=== PATIENT | male | born 1970 ===

== ENCOUNTER 2018-04-28 16:45 | Inpatient (IN) | payer BC ==
[2018-04-28] MEDS ORDERED: Sodium Chloride 0.9% 1,000 ML IV STA ×2 (17:00→18:31)
--- NOTE | 2018-04-28 17:10 | ED PDOC ---
HPI: General Adult Time Seen by Provider: 04/28/18 16:59 Chief Complaint (Nursing): Abnormal Labs Chief Complaint (Provider): High blood sugar History Per: Patient History/Exam Limitations: no limitations Onset/Duration Of Symptoms: Days (yesterday) Additional Complaint(s): Pt. was seen by Dr. Cabrera yesterday for routine check up and fungus on his penis. Pt. got blood work done yesterday for this and told to go to the ER today as his sugar was high. Pt. has increased urination but no dysuria. No chest pain, dyspnea, weakness, numbness, tingles, abd pain, nausea, vomit. Past Medical History Reviewed: Nursing Documentation, Vital Signs Vital Signs: Last Vital Signs Temp 98.4 F 04/28/18 16:48 Pulse 114 H 04/28/18 16:48 Resp 18 04/28/18 16:48 BP 140/92 H 04/28/18 16:48 Pulse Ox 99 04/28/18 16:48 - Medical History PMH: HIV (on HAART) Denies: Diabetes, Hepatitis, HTN, Seizures, Sexually Transmitted Disease - Surgical History Surgical History: Appendectomy - Family History Family History: States: Unknown Family Hx - Living Arrangements Living Arrangements: With Family - Home Medications Home Medications: Ambulatory Orders Medication Instructions Recorded Emtricitabine/Tenofovir Diso 1 tab PO DAILY 04/28/18 [Truvada 200 MG-300 MG] Fluconazole 150 mg PO ONCE 04/28/18 Multivitamin/Iron/Folic Acid 1 tab PO DAILY 04/28/18 [Centrum Complete Multivit Tab] Nystatin [Nystatin Oral Susp] 4 ml PO QID 04/28/18 Raltegravir Potassium [Isentress] 400 mg PO Q12 04/28/18 metroNIDAZOLE [Flagyl] 2,000 mg PO ONCE 04/28/18 - Allergies Allergies/Adverse Reactions: Allergies Allergy/AdvReac Type Severity Reaction Status Date / Time No Known Allergies Allergy Verified 02/16/15 21:41 Review of Systems ROS Statement: Except As Marked, All Systems Reviewed And Found Negative Genitourinary Male: Positive for: Frequency, Rash Physical Exam - Reviewed Nursing Documentation Reviewed: Yes Vital Signs Reviewed: Yes - Physical Exam Appears: Positive for: Uncomfortable Head Exam: Positive for: ATRAUMATIC, NORMAL INSPECTION, NORMOCEPHALIC Skin: Positive for: Normal Color, Warm, DRY Eye Exam: Positive for: EOMI, Normal appearance, PERRL ENT: Positive for: Other (thrush on tongue). Negative for: Nasal Congestion, Pharyngeal Erythema Neck: Positive for: Normal, Painless ROM Cardiovascular/Chest: Positive for: Regular Rate, Rhythm Respiratory: Positive for: CNT, Normal Breath Sounds Gastrointestinal/Abdominal: Positive for: Normal Exam, Soft. Negative for: Tenderness Male Genital Exam: Positive for: other (thrus at distal tip with mild erythema. nontender.). Negative for: scrotum tenderness (R), scrotum tenderness (L) Back: Positive for: Normal Inspection. Negative for: L CVA Tenderness, R CVA Tenderness Extremity: Positive for: Normal ROM. Negative for: Tenderness Neurologic/Psych: Positive for: Alert, Oriented - Laboratory Results Result Diagrams: 04/28/18 17:35 04/28/18 17:35 Interpretation Of Abn Labs: 665 glucose - ECG ECG: Positive for: Interpreted By Me, Viewed By Me ECG Rhythm: Positive for: Normal QRS, Normal ST Segment, Sinus Rhythm O2 Sat by Pulse Oximetry: 99 Pulse Ox Interpretation: Normal - Radiology X-Ray: Interpreted by Me, Viewed By Me X-Ray Interpretation: No Acute Disease - Progress ED Course And Treament: 175: Stable. Dr. Christina spoken to. Alicia hospitalist to admit. 1831: Spoke with Dr. Ivey. Will admit. Stable. AAOx3. - Critical Care Total Time (In Min): 30 Documented Critical Care: Time excludes all time spent performint seperately billable procedures Disposition - Clinical Impression Clinical Impression: Hyperglycemia, Balanitis, Thrush - Patient ED Disposition Is Patient to be Admitted: Yes Counseled Patient/Family Regarding: Studies Performed, Diagnosis - Disposition Disposition Time: 18:33 Condition: FAIR - Pt Status Changed To: Hospital Disposition Of: Inpatient - Admit Certification Admit to Inpatient:: After my assessment, the patient will require hospitalization for at least two midnights. This is because of the severity of symptoms shown, intensity of services needed, and/or the medical risk in this patient being treated as an outpatient. - POA Present On Arrival: Poor Glycemic Control
[2018-04-28 17:50] LABS: BASO # 0.1 K/uL (0.0-0.2); BASO % 0.8 % (0.0-2.0); EOS % 0.6 % (0.0-4.0); HEMOGLOBIN 14.3 g/dL (12.0-18.0); LYMPH # 2.2 K/uL (1.0-4.3); LYMPH % 26.8 % (20.0-40.0); MEAN CELL VOLUME 85.7 fl (80.0-94.0); MEAN CORPUSCULAR HEMOGLOBIN 29.8 pg (27.0-31.0); MEAN CORPUSCULAR HGB CONC 34.7 g/dL (33.0-37.0); MEAN PLATELET VOLUME 10.3 fl (7.2-11.7); MONO # 0.6 K/uL (0.0-0.8); MONO % 7.3 % (0.0-10.0); NEUT # 5.2 K/uL (1.8-7.0); NEUT % 64.5 % (50.0-75.0); NRBC % 0.2 % (0.0-0.0); RBC 4.8 Mil/uL (4.40-5.90); RED CELL DISTRIBUTION WIDTH 13.5 % (11.5-14.5); WHITE BLOOD COUNT 8.1 K/uL (4.8-10.8)
[2018-04-28 17:50] LABS: VENOUS BLOOD GAS BASE EXCESS -0.3 mmol/L (0.0-2.0); VENOUS BLOOD GAS PCO2 38 mmHg (40-60); VENOUS BLOOD GAS PO2 56 mm/Hg (30-55); VENOUS BLOOD PH 7.41 (7.32-7.43)
[2018-04-28 18:09] LABS: SQUAMOUS EPITHIAL 2 /hpf (0-5); URINE BILIRUBIN NEGATIVE (NEGATIVE); URINE BLOOD SMALL (NEGATIVE); URINE CLARITY SLIGHTY-CLOUDY (Clear); URINE COLOR STRAW (YELLOW); URINE GLUCOSE (UA) >=500 mg/dL (Normal); URINE LEUKOCYTE ESTERASE LARGE Leu/uL (Negative); URINE PROTEIN NEGATIVE (NEGATIVE); URINE UROBILINOGEN 0.2-1.0 mg/dL (0.2-1.0)
[2018-04-28 18:27] LABS: ALT/SGPT 190 U/L (21-72); AST/SGOT 116 U/L (17-59); BLOOD UREA NITROGEN 16 mg/dl (9-20); CALCIUM 9.2 mg/dL (8.4-10.2); GFR NON-AFRICAN AMERICAN > 60
[2018-04-28] MEDS ORDERED: Insulin Regular 100 units/ml IV STA (18:30)
[2018-04-28] MEDS ORDERED: Insulin Regular 100 units/ml ONE (18:34)
[2018-04-28] MEDS ORDERED: Glucagon Recombinant 1 mg Inj IM PRN (19:24)
[2018-04-28] MEDS ORDERED: Dextrose 50% SYRINGE Inj (50 ml) IV PRN (19:24)
[2018-04-28] MEDS ORDERED: Sodium Chloride 0.9% 1,000 ML IV SCH (19:30)
--- NOTE | 2018-04-28 19:36 | CP.PCM.HP ---
Addendum entered and electronically signed by Tony Henao MD 04/28/18 20:08: additional problem: hyponatremia on CMP, 128, likely pseudohyponatremia due to hyperglycemia, corrected Na 142 lipid panel pending f/u am labs Original Note: <Tony Henao - Last Filed: 04/28/18 19:37> History of Present Illness - History of Present Illness History of Present Illness: 47 y/o male with history of HIV on HAART therapy presented to ED for evaluation of hyperglycemia. Pt was undergoing lab evaluation by his PMD when he was notified that his blood sugar on recent labs was very high and he should go to the ER for evaluation. Pt reports for the last three weeks hes been very thirsty, and has been losing weight as well. Reports he was 225lbs prior, and now is 158lbs. He also has been feeling weaker than usual with associated dizziness. Reports being able to tolerate PO water intake w/o issue. Has been adherent with HAART medical regiment. No other complaints. Denies fever/chills/cough/SOB/CP/Palpiations/urinary symptoms, diarrhea. ROS: as per HPI, all other systems reviewed, found to be negative PMD: Armando PMHx: HIV on HAART Meds: Isentress/truvada ALL: NKDA Social: denies ETOH/Tobacco/drug abuse FamilyHx: DM in maternal grandmother ED course: Vitals: T 98.4, HR 114, BP 140/92, RR 18, POX 99% RA CBC: 8.1>14.3/41.1<147 CMP: Na 128, Cl 95, BUN/Cr: 16/0.7, Anion 18, BS 665, AST/ALT: 190/154 VBG: Lactate 1.8 Urine: trace ketones, elevated specific gravity, >500 glucose, negative nitrates, large LE, 12 WBC hpf EKG CXR Present on Admission - Present on Admission Any Indicators Present on Admission: No History of DVT/PE: No History of Uncontrolled Diabetes: No Urinary Catheter: No Decubitus Ulcer Present: No Review of Systems - Review of Systems Review of Systems: as per HPI Past Patient History - Past Medical History & Family History Past Family History: Reviewed and not pertinent - Past Social History Smoking Status: Never Smoked Alcohol: None Drugs: Denies Home Situation {Lives}: With Family - CARDIAC Hx Hypertension: No - PULMONARY Hx Tuberculosis: No - NEUROLOGICAL Hx Seizures: No - HEMATOLOGICAL/ONCOLOGICAL Hx Human Immunodeficiency Virus (HIV): Yes (on HAART) - GENITOURINARY/GYNECOLOGICAL Hx Sexually Transmitted Disorders: No - PSYCHIATRIC Hx Substance Use: No - SURGICAL HISTORY Hx Appendectomy: Yes - ANESTHESIA Hx Anesthesia: Yes Hx Anesthesia Reactions: No Meds Allergies/Adverse Reactions: Allergies Allergy/AdvReac Type Severity Reaction Status Date / Time No Known Allergies Allergy Verified 02/16/15 21:41 Physical Exam - Constitutional Appears: Non-toxic, No Acute Distress - Head Exam Head Exam: ATRAUMATIC, NORMOCEPHALIC - Eye Exam Eye Exam: EOMI. absent: Scleral icterus Pupil Exam: PERRL - ENT Exam ENT Exam: Mucous Membranes Dry. absent: Mucous Membranes Moist - Respiratory Exam Respiratory Exam: Clear to Auscultation Bilateral, NORMAL BREATHING PATTERN. absent: Rales, Rhonchi, Wheezes - Cardiovascular Exam Cardiovascular Exam: REGULAR RHYTHM, RRR, +S1, +S2. absent: JVD, Rubs - GI/Abdominal Exam GI & Abdominal Exam: Normal Bowel Sounds, Soft. absent: Tenderness - Extremities Exam Extremities exam: Negative for: pedal edema - Neurological Exam Neurological exam: Alert, CN II-XII Intact, Oriented x3 - Skin Additional comments: generalized tattoos Results - Vital Signs Recent Vital Signs: Last Vital Signs Temp 98.4 F 04/28/18 16:48 Pulse 114 H 04/28/18 16:48 Resp 18 04/28/18 16:48 BP 140/92 H 04/28/18 16:48 Pulse Ox 99 04/28/18 18:33 - Labs Result Diagrams: 04/28/18 17:35 04/28/18 17:35 Labs: Laboratory Results - last 24 hr 04/28/18 04/28/18 04/28/18 16:59 17:21 17:35 WBC 8.1 RBC 4.80 Hgb 14.3 Hct 41.1 MCV 85.7 D MCH 29.8 MCHC 34.7 RDW 13.5 Plt Count 147 MPV 10.3 Neut % (Auto) 64.5 Lymph % (Auto) 26.8 [place] % (Auto) 7.3 Eos % (Auto) 0.6 Baso % (Auto) 0.8 Neut # (Auto) 5.2 Lymph # (Auto) 2.2 [place] # (Auto) 0.6 Eos # (Auto) 0.0 Baso # (Auto) 0.1 pO2 VBG pH VBG pCO2 VBG HCO3 VBG Total CO2 VBG O2 Sat (Calc) VBG Base Excess VBG Potassium Glucose Lactate FiO2 Crit Value Called To Crit Value Called By Crit Value Read Back Blood Gas Notified Time Sodium Potassium Chloride Carbon Dioxide Anion Gap BUN Creatinine Est GFR ( Amer) Est GFR (Non-Af Amer) POC Glucose (mg/dL) > 500 H* Random Glucose Calcium Total Bilirubin AST ALT Alkaline Phosphatase Troponin I Total Protein Albumin Globulin Albumin/Globulin Ratio Venous Blood Potassium Urine Color Straw Urine Clarity Slighty-cloudy Urine pH 6.0 Ur Specific [place] 1.031 H Urine Protein Negative Urine Glucose (UA) >=500 Urine Ketones Trace Urine Blood Small Urine Nitrate Negative Urine Bilirubin Negative Urine Urobilinogen 0.2-1.0 Ur Leukocyte Esterase Large Urine RBC (Auto) 7 H Urine Microscopic WBC 12 H Ur Squamous Epith Cells 2 04/28/18 04/28/18 17:35 17:38 WBC RBC Hgb Hct MCV MCH MCHC RDW Plt Count MPV Neut % (Auto) Lymph % (Auto) [place] % (Auto) Eos % (Auto) Baso % (Auto) Neut # (Auto) Lymph # (Auto) [place] # (Auto) Eos # (Auto) Baso # (Auto) pO2 56 H VBG pH 7.41 VBG pCO2 38 L VBG HCO3 24.5 VBG Total CO2 25.3 VBG O2 Sat (Calc) 92.8 H VBG Base Excess -0.3 L VBG Potassium 4.7 Glucose 713 H* Lactate 1.8 FiO2 21.0 Crit Value Called To bernie Garcia md Crit Value Called By Carrie boone Crit Value Read Back Y Blood Gas Notified Time 1750 Sodium 128 L 128.0 L Potassium 4.9 Chloride 95 L 92.0 L Carbon Dioxide 20 L Anion Gap 18 BUN 16 Creatinine 0.7 L Est GFR ( Amer) > 60 Est GFR (Non-Af Amer) > 60 POC Glucose (mg/dL) Random Glucose 665 H* D Calcium 9.2 Total Bilirubin 0.9 AST 116 H ALT 190 H Alkaline Phosphatase 154 H Troponin I < 0.0120 Total Protein 7.9 Albumin 4.0 Globulin 3.9 Albumin/Globulin Ratio 1.0 Venous Blood Potassium 4.7 Urine Color Urine Clarity Urine pH Ur Specific [place] Urine Protein Urine Glucose (UA) Urine Ketones Urine Blood Urine Nitrate Urine Bilirubin Urine Urobilinogen Ur Leukocyte Esterase Urine RBC (Auto) Urine Microscopic WBC Ur Squamous Epith Cells Assessment & Plan - Assessment and Plan (Free Text) Assessment: 47 y/o male with a PMHx remarkable for HIV on HAART therapy admitted for symptomatic hyperglycemia. 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 -hold HAART meds due to hyperglycemia/transaminasemia -f/u with ID 5) Diet -NPO 6) Prophylaxis -Lovenox 40mg SC QD 7) Code Status -full code <Isiah Ivey D - Last Filed: 04/28/18 23:18> Results - Vital Signs Recent Vital Signs: Last Vital Signs Temp 98.5 F 04/28/18 21:05 Pulse 80 04/28/18 21:05 Resp 18 04/28/18 21:05 BP 124/77 04/28/18 21:05 Pulse Ox 95 04/28/18 21:05 - Labs Result Diagrams: 04/28/18 17:35 04/28/18 17:35 Labs: Laboratory Results - last 24 hr 04/28/18 04/28/18 04/28/18 16:59 17:21 17:35 WBC 8.1 RBC 4.80 Hgb 14.3 Hct 41.1 MCV 85.7 D MCH 29.8 MCHC 34.7 RDW 13.5 Plt Count 147 MPV 10.3 Neut % (Auto) 64.5 Lymph % (Auto) 26.8 [place] % (Auto) 7.3 Eos % (Auto) 0.6 Baso % (Auto) 0.8 Neut # (Auto) 5.2 Lymph # (Auto) 2.2 [place] # (Auto) 0.6 Eos # (Auto) 0.0 Baso # (Auto) 0.1 pO2 VBG pH VBG pCO2 VBG HCO3 VBG Total CO2 VBG O2 Sat (Calc) VBG Base Excess VBG Potassium Glucose Lactate FiO2 Crit Value Called To Crit Value Called By Crit Value Read Back Blood Gas Notified Time Sodium Potassium Chloride Carbon Dioxide Anion Gap BUN Creatinine Est GFR ( Amer) Est GFR (Non-Af Amer) POC Glucose (mg/dL) > 500 H* Random Glucose Calcium Total Bilirubin AST ALT Alkaline Phosphatase Troponin I Total Protein Albumin Globulin Albumin/Globulin Ratio Triglycerides Cholesterol LDL Cholesterol Direct HDL Cholesterol Venous Blood Potassium Urine Color Straw Urine Clarity Slighty-cloudy Urine pH 6.0 Ur Specific [place] 1.031 H Urine Protein Negative Urine Glucose (UA) >=500 Urine Ketones Trace Urine Blood Small Urine Nitrate Negative Urine Bilirubin Negative Urine Urobilinogen 0.2-1.0 Ur Leukocyte Esterase Large Urine RBC (Auto) 7 H Urine Microscopic WBC 12 H Ur Squamous Epith Cells 2 04/28/18 04/28/18 04/28/18 17:35 17:38 20:47 WBC RBC Hgb Hct MCV MCH MCHC RDW Plt Count MPV Neut % (Auto) Lymph % (Auto) [place] % (Auto) Eos % (Auto) Baso % (Auto) Neut # (Auto) Lymph # (Auto) [place] # (Auto) Eos # (Auto) Baso # (Auto) pO2 56 H VBG pH 7.41 VBG pCO2 38 L VBG HCO3 24.5 VBG Total CO2 25.3 VBG O2 Sat (Calc) 92.8 H VBG Base Excess -0.3 L VBG Potassium 4.7 Glucose 713 H* Lactate 1.8 FiO2 21.0 Crit Value Called To bernie Garcia md Crit Value Called By Carrie boone Crit Value Read Back Y Blood Gas Notified Time 1750 Sodium 128 L 128.0 L Potassium 4.9 Chloride 95 L 92.0 L Carbon Dioxide 20 L Anion Gap 18 BUN 16 Creatinine 0.7 L Est GFR ( Amer) > 60 Est GFR (Non-Af Amer) > 60 POC Glucose (mg/dL) Random Glucose 665 H* D Calcium 9.2 Total Bilirubin 0.9 AST 116 H ALT 190 H Alkaline Phosphatase 154 H Troponin I < 0.0120 Total Protein 7.9 Albumin 4.0 Globulin 3.9 Albumin/Globulin Ratio 1.0 Triglycerides 280 H Cholesterol 151 LDL Cholesterol Direct 93 HDL Cholesterol 26 L Venous Blood Potassium 4.7 Urine Color Urine Clarity Urine pH Ur Specific [place] Urine Protein Urine Glucose (UA) Urine Ketones Urine Blood Urine Nitrate Urine Bilirubin Urine Urobilinogen Ur Leukocyte Esterase Urine RBC (Auto) Urine Microscopic WBC Ur Squamous Epith Cells Attending/Attestation - Attestation I have personally seen and examined this patient.: Yes I have fully participated in the care of the patient.: Yes I have reviewed all pertinent clinical information: Yes
[2018-04-28] MEDS: Sodium Chloride 0.9% 1,000 ML IV SCH (20:00)
[2018-04-28] MEDS: Insulin Lispro (humaLOG) 100 Units/ml Inj SC SCH ×2 (20:00→23:54)
[2018-04-28 20:56] LABS: HDL CHOLESTEROL 26 MG/DL (30-70)
[2018-04-28 21:07] LABS: LDL CHOLESTEROL 93 mg/dL (0-129)
[2018-04-28] MEDS ORDERED: Insulin Lispro (humaLOG) 100 Units/ml Inj SC SCH (22:00)
[2018-04-29] MEDS: Sodium Chloride 0.9% 1,000 ML IV SCH ×4 (01:43→21:52)
[2018-04-29] MEDS: Insulin Lispro (humaLOG) 100 Units/ml Inj SC SCH ×5 (03:39→21:54)
[2018-04-29 06:09] LABS: HEMOGLOBIN 13.1 g/dL (12.0-18.0); MEAN CELL VOLUME 84.7 fl (80.0-94.0); MEAN CORPUSCULAR HEMOGLOBIN 28.5 pg (27.0-31.0); MEAN CORPUSCULAR HGB CONC 33.7 g/dL (33.0-37.0); RBC 4.59 Mil/uL (4.40-5.90); RED CELL DISTRIBUTION WIDTH 13.6 % (11.5-14.5); WHITE BLOOD COUNT 6.2 K/uL (4.8-10.8)
[2018-04-29 06:32] LABS: BLOOD UREA NITROGEN 12 mg/dl (9-20); CALCIUM 8.5 mg/dL (8.4-10.2); GFR NON-AFRICAN AMERICAN > 60
[2018-04-29] MEDS: Enoxaparin 40 mg Syringe SC SCH (08:38)
[2018-04-29] MEDS ORDERED: Influenza Vaccine (5 YR UP)/PF 60 MCG/0.5 ML SYR IM ONE (09:00)
--- NOTE | 2018-04-29 10:18 | CP.PCM.CON ---
History of Present Illness - History of Present Illness History of Present Illness: Infectious Disease consultation Note- Consult requested by hospitalist . HPI- Natalytn well known to me as he sees me for his HIV care as outpatient. Patient is a 47 year old male with PMH of HIV ( well controlled on HAART( who came to see me in office 2 days ago for c/o whitish thick azael/discharge that he had noticed on his penile under foreskin region for past week with very painful to go to urinate becuase of this. he denied any fever or chills . He denied any cough or sob, however , he sttaes that for past few months he had been having intermittent nausea and abdominal discomfort, no diarrhea. I gave rx for fluzonazole and flagyl because bassed on exam in offce he ahd candidal balanitis and I also sent him for labs including cbc, cmp, Cd4 and Vl . next am notified by lab that pt's glucose was 600, ast/alt/ alp all elevated, Na-129. I immediately called the patient and advised him to go to ER [facility]. Pt. went to Ed and is admitted for new onset diabetes, hyperglycemia and trasnaminitis and he was also found to have LE in UA. He is admitted under the hospitalist service for medicine adn diabetes management. I'm asked to evaluate him for his HIV, + UA and balanitis. Pt. has been started on insulin and IV hydration here so far and state he feels better compared to yesterday. he states he nevr picked up the fluconazole and flagyl since he had not yoly and came to ED immediately as per my advice. Upon further questioning today he admits that he drinks 5 cups of [employer] coffee per day adn he drinks soda everyday . he denies any ETOH use but does states that he usses Marijuana daily and he also state he takes tylenol PM every night to help him sleep. Review of Systems - Review of Systems Review of Systems: ROS- Denies any fever or chills, denies any cough, denies any sob, denies any ROBLES, denies any chest pain, denies any current abd. pain, denies any diarrhea, states he still ahs some pain with urination but less than before. he still has the whitish discharge under his penile foreskin but denies any discharge from the meatus. Past Patient History - Past Medical History & Family History Past Medical History?: Yes - Past Social History Smoking Status: Light Smoker < 10 Cigarettes Daily Alcohol: Occasional Drugs: Cannabis Home Situation {Lives}: With Family - CARDIAC Hx Cardiac Disorders: No - PULMONARY Hx Respiratory Disorders: No Hx Tuberculosis: No - NEUROLOGICAL Hx Neurological Disorder: No Hx Seizures: No - HEENT Hx HEENT Problems: No - RENAL Hx Chronic Kidney Disease: No - HEMATOLOGICAL/ONCOLOGICAL Hx Blood Disorders: Yes Hx Human Immunodeficiency Virus (HIV): Yes - INTEGUMENTARY Hx Dermatological Problems: No - MUSCULOSKELETAL/RHEUMATOLOGICAL Hx Musculoskeletal Disorders: No Hx Falls: No - GASTROINTESTINAL Hx Gastrointestinal Disorders: No - GENITOURINARY/GYNECOLOGICAL Hx Genitourinary Disorders: No Hx Sexually Transmitted Disorders: No - PSYCHIATRIC Hx Psychophysiologic Disorder: No Hx Substance Use: No - SURGICAL HISTORY Hx Surgeries: Yes Hx Appendectomy: Yes - ANESTHESIA Hx Anesthesia: Yes Hx Anesthesia Reactions: No Meds Allergies/Adverse Reactions: Allergies Allergy/AdvReac Type Severity Reaction Status Date / Time No Known Allergies Allergy Verified 02/16/15 21:41 - Medications Medications: Current Medications Dextrose (Dextrose 50% Inj) 0 ml IV STAT PRN; Protocol PRN Reason: Hypoglycemia Protocol Dextrose (Glutose 15) 0 gm PO ONCE PRN; Protocol PRN Reason: Hypoglycemia Protocol Enoxaparin Sodium (Lovenox) 40 mg SC DAILY MEDHAT; Protocol Last Admin: 04/29/18 08:38 Dose: 40 mg Glucagon (Glucagen Diagnostic Kit) 0 mg IM STAT PRN; Protocol PRN Reason: Hypoglycemia Protocol Sodium Chloride (Sodium Chloride 0.9%) 1,000 mls @ 200 mls/hr IV .Q5H MEDHAT Stop: 04/30/18 06:42 Last Admin: 04/29/18 07:08 Dose: 200 mls/hr Insulin Human Lispro (Humalog) 0 units SC Q4H MEDHAT; Protocol Last Admin: 04/29/18 08:38 Dose: 2 units Metformin HCl (Glucophage) 500 mg PO BID MEDHAT Last Admin: 04/29/18 08:37 Dose: 500 mg Nitrofurantoin Macrocrystals (Macrobid) 100 mg PO Q12 MEDHAT; Protocol Last Admin: 04/29/18 08:37 Dose: 100 mg Ondansetron HCl (Zofran Inj) 4 mg IVP Q6 PRN PRN Reason: Nausea/Vomiting Physical Exam - Constitutional Appears: Non-toxic, No Acute Distress - Head Exam Head Exam: ATRAUMATIC - Eye Exam Eye Exam: EOMI, PERRL - ENT Exam Additional comments: dry oral mucosa Minimal oral thrush ( new) - Neck Exam Neck exam: Positive for: Full Rom - Respiratory Exam Respiratory Exam: Clear to Auscultation Bilateral, NORMAL BREATHING PATTERN - Cardiovascular Exam Cardiovascular Exam: RRR, +S1, +S2 - GI/Abdominal Exam GI & Abdominal Exam: Normal Bowel Sounds, Soft Additional comments: Nt, ND No CVA tenderness B/L - Exam Additional comments: candidal looking balanitis ( nurse present in room) - Extremities Exam Extremities exam: Positive for: normal inspection - Neurological Exam Neurological exam: Alert, CN II-XII Intact, Oriented x3 Results - Vital Signs Recent Vital Signs: Last Vital Signs Temp 98.4 F 04/29/18 07:41 Pulse 94 H 04/29/18 07:41 Resp 20 04/29/18 07:41 BP 109/70 04/29/18 07:41 Pulse Ox 98 04/29/18 07:41 - Labs Result Diagrams: 04/29/18 05:25 04/29/18 05:25 Labs: Laboratory Results - last 24 hr 04/28/18 04/28/18 04/28/18 16:59 17:21 17:35 WBC 8.1 RBC 4.80 Hgb 14.3 Hct 41.1 MCV 85.7 D MCH 29.8 MCHC 34.7 RDW 13.5 Plt Count 147 MPV 10.3 Neut % (Auto) 64.5 Lymph % (Auto) 26.8 Atkinson % (Auto) 7.3 Eos % (Auto) 0.6 Baso % (Auto) 0.8 Neut # (Auto) 5.2 Lymph # (Auto) 2.2 Atkinson # (Auto) 0.6 Eos # (Auto) 0.0 Baso # (Auto) 0.1 pO2 VBG pH VBG pCO2 VBG HCO3 VBG Total CO2 VBG O2 Sat (Calc) VBG Base Excess VBG Potassium Glucose Lactate FiO2 Crit Value Called To Crit Value Called By Crit Value Read Back Blood Gas Notified Time Sodium Potassium Chloride Carbon Dioxide Anion Gap BUN Creatinine Est GFR ( Amer) Est GFR (Non-Af Amer) POC Glucose (mg/dL) > 500 H* Random Glucose Serum Osmolality Calcium Total Bilirubin AST ALT Alkaline Phosphatase Troponin I Total Protein Albumin Globulin Albumin/Globulin Ratio Triglycerides Cholesterol LDL Cholesterol Direct HDL Cholesterol Venous Blood Potassium Urine Color Straw Urine Clarity Slighty-cloudy Urine pH 6.0 Ur Specific Hughes 1.031 H Urine Protein Negative Urine Glucose (UA) >=500 Urine Ketones Trace Urine Blood Small Urine Nitrate Negative Urine Bilirubin Negative Urine Urobilinogen 0.2-1.0 Ur Leukocyte Esterase Large Urine RBC (Auto) 7 H Urine Microscopic WBC 12 H Ur Squamous Epith Cells 2 04/28/18 04/28/18 04/28/18 17:35 17:38 20:47 WBC RBC Hgb Hct MCV MCH MCHC RDW Plt Count MPV Neut % (Auto) Lymph % (Auto) Atkinson % (Auto) Eos % (Auto) Baso % (Auto) Neut # (Auto) Lymph # (Auto) Atkinson # (Auto) Eos # (Auto) Baso # (Auto) pO2 56 H VBG pH 7.41 VBG pCO2 38 L VBG HCO3 24.5 VBG Total CO2 25.3 VBG O2 Sat (Calc) 92.8 H VBG Base Excess -0.3 L VBG Potassium 4.7 Glucose 713 H* Lactate 1.8 FiO2 21.0 Crit Value Called To bernie Garcia md Crit Value Called By Carrie boone Crit Value Read Back Y Blood Gas Notified Time 1750 Sodium 128 L 128.0 L Potassium 4.9 Chloride 95 L 92.0 L Carbon Dioxide 20 L Anion Gap 18 BUN 16 Creatinine 0.7 L Est GFR ( Amer) > 60 Est GFR (Non-Af Amer) > 60 POC Glucose (mg/dL) Random Glucose 665 H* D Serum Osmolality Calcium 9.2 Total Bilirubin 0.9 AST 116 H ALT 190 H Alkaline Phosphatase 154 H Troponin I < 0.0120 Total Protein 7.9 Albumin 4.0 Globulin 3.9 Albumin/Globulin Ratio 1.0 Triglycerides 280 H Cholesterol 151 LDL Cholesterol Direct 93 HDL Cholesterol 26 L Venous Blood Potassium 4.7 Urine Color Urine Clarity Urine pH Ur Specific Hughes Urine Protein Urine Glucose (UA) Urine Ketones Urine Blood Urine Nitrate Urine Bilirubin Urine Urobilinogen Ur Leukocyte Esterase Urine RBC (Auto) Urine Microscopic WBC Ur Squamous Epith Cells 04/29/18 04/29/1804/29/18 05:25 05:25 06:30 WBC 6.2 RBC 4.59 Hgb 13.1 Hct 38.9 MCV 84.7 MCH 28.5 MCHC 33.7 RDW 13.6 Plt Count 129 L MPV Neut % (Auto) Lymph % (Auto) Atkinson % (Auto) Eos % (Auto) Baso % (Auto) Neut # (Auto) Lymph # (Auto) Atkinson # (Auto) Eos # (Auto) Baso # (Auto) pO2 VBG pH VBG pCO2 VBG HCO3 VBG Total CO2 VBG O2 Sat (Calc) VBG Base Excess VBG Potassium Glucose Lactate FiO2 Crit Value Called To Crit Value Called By Crit Value Read Back Blood Gas Notified Time Sodium 137 Potassium 4.0 Chloride 105 Carbon Dioxide 28 Anion Gap 8 L BUN 12 Creatinine 0.7 L Est GFR ( Amer) > 60 Est GFR (Non-Af Amer) > 60 POC Glucose (mg/dL) Random Glucose 300 H Serum Osmolality 298 Calcium 8.5 Total Bilirubin AST ALT Alkaline Phosphatase Troponin I Total Protein Albumin Globulin Albumin/Globulin Ratio Triglycerides Cholesterol LDL Cholesterol Direct HDL Cholesterol Venous Blood Potassium Urine Color Urine Clarity Urine pH Ur Specific Hughes Urine Protein Urine Glucose (UA) Urine Ketones Urine Blood Urine Nitrate Urine Bilirubin Urine Urobilinogen Ur Leukocyte Esterase Urine RBC (Auto) Urine Microscopic WBC Ur Squamous Epith Cells Laboratory Results - last 72 hr 04/28/18 04/28/18 04/28/18 16:59 17:21 17:35 WBC 8.1 RBC 4.80 Hgb 14.3 Hct 41.1 MCV 85.7 D MCH 29.8 MCHC 34.7 RDW 13.5 Plt Count 147 MPV 10.3 Neut % (Auto) 64.5 Lymph % (Auto) 26.8 Atkinson % (Auto) 7.3 Eos % (Auto) 0.6 Baso % (Auto) 0.8 Neut # (Auto) 5.2 Lymph # (Auto) 2.2 Atkinson # (Auto) 0.6 Eos # (Auto) 0.0 Baso # (Auto) 0.1 pO2 VBG pH VBG pCO2 VBG HCO3 VBG Total CO2 VBG O2 Sat (Calc) VBG Base Excess VBG Potassium Glucose Lactate FiO2 Crit Value Called To Crit Value Called By Crit Value Read Back Blood Gas Notified Time Sodium Potassium Chloride Carbon Dioxide Anion Gap BUN Creatinine Est GFR ( Amer) Est GFR (Non-Af Amer) POC Glucose (mg/dL) > 500 H* Random Glucose Hemoglobin A1c Serum Osmolality Calcium Total Bilirubin Direct Bilirubin AST ALT Alkaline Phosphatase Troponin I Total Protein Albumin Globulin Albumin/Globulin Ratio Triglycerides Cholesterol LDL Cholesterol Direct HDL Cholesterol Venous Blood Potassium Urine Color Straw Urine Clarity Slighty-cloudy Urine pH 6.0 Ur Specific Hughes 1.031 H Urine Protein Negative Urine Glucose (UA) >=500 Urine Ketones Trace Urine Blood Small Urine Nitrate Negative Urine Bilirubin Negative Urine Urobilinogen 0.2-1.0 Ur Leukocyte Esterase Large Urine RBC (Auto) 7 H Urine Microscopic WBC 12 H Ur Squamous Epith Cells 2 04/28/18 04/28/18 04/28/18 17:35 17:38 19:34 WBC RBC Hgb Hct MCV MCH MCHC RDW Plt Count MPV Neut % (Auto) Lymph % (Auto) Atkinson % (Auto) Eos % (Auto) Baso % (Auto) Neut # (Auto) Lymph # (Auto) Atkinson # (Auto) Eos # (Auto) Baso # (Auto) pO2 56 H VBG pH 7.41 VBG pCO2 38 L VBG HCO3 24.5 VBG Total CO2 25.3 VBG O2 Sat (Calc) 92.8 H VBG Base Excess -0.3 L VBG Potassium 4.7 Glucose 713 H* Lactate 1.8 FiO2 21.0 Crit Value Called To bernie Garcia md Crit Value Called By Carrie boone Crit Value Read Back Y Blood Gas Notified Time 1750 Sodium 128 L 128.0 L Potassium 4.9 Chloride 95 L 92.0 L Carbon Dioxide 20 L Anion Gap 18 BUN 16 Creatinine 0.7 L Est GFR ( Amer) > 60 Est GFR (Non-Af Amer) > 60 POC Glucose (mg/dL) 381 H Random Glucose 665 H* D Hemoglobin A1c Serum Osmolality Calcium 9.2 Total Bilirubin 0.9 Direct Bilirubin AST 116 H ALT 190 H Alkaline Phosphatase 154 H Troponin I < 0.0120 Total Protein 7.9 Albumin 4.0 Globulin 3.9 Albumin/Globulin Ratio 1.0 Triglycerides Cholesterol LDL Cholesterol Direct HDL Cholesterol Venous Blood Potassium 4.7 Urine Color Urine Clarity Urine pH Ur Specific Hughes Urine Protein Urine Glucose (UA) Urine Ketones Urine Blood Urine Nitrate Urine Bilirubin Urine Urobilinogen Ur Leukocyte Esterase Urine RBC (Auto) Urine Microscopic WBC Ur Squamous Epith Cells 04/28/18 04/28/18 04/28/18 20:47 20:47 23:45 WBC RBC Hgb Hct MCV MCH MCHC RDW Plt Count MPV Neut % (Auto) Lymph % (Auto) Atkinson % (Auto) Eos % (Auto) Baso % (Auto) Neut # (Auto) Lymph # (Auto) Atkinson # (Auto) Eos # (Auto) Baso # (Auto) pO2 VBG pH VBG pCO2 VBG HCO3 VBG Total CO2 VBG O2 Sat (Calc) VBG Base Excess VBG Potassium Glucose Lactate FiO2 Crit Value Called To Crit Value Called By Crit Value Read Back Blood Gas Notified Time Sodium Potassium Chloride Carbon Dioxide Anion Gap BUN Creatinine Est GFR ( Amer) Est GFR (Non-Af Amer) POC Glucose (mg/dL) 419 H* Random Glucose Hemoglobin A1c 10.7 H Serum Osmolality Calcium Total Bilirubin Direct Bilirubin AST ALT Alkaline Phosphatase Troponin I Total Protein Albumin Globulin Albumin/Globulin Ratio Triglycerides 280 H Cholesterol 151 LDL Cholesterol Direct 93 HDL Cholesterol 26 L Venous Blood Potassium Urine Color Urine Clarity Urine pH Ur Specific Hughes Urine Protein Urine Glucose (UA) Urine Ketones Urine Blood Urine Nitrate Urine Bilirubin Urine Urobilinogen Ur Leukocyte Esterase Urine RBC (Auto) Urine Microscopic WBC Ur Squamous Epith Cells 04/29/18 04/29/18 04/29/18 03:33 05:25 05:25 WBC 6.2 RBC 4.59 Hgb 13.1 Hct 38.9 MCV 84.7 MCH 28.5 MCHC 33.7 RDW 13.6 Plt Count 129 L MPV Neut % (Auto) Lymph % (Auto) Atkinson % (Auto) Eos % (Auto) Baso % (Auto) Neut # (Auto) Lymph # (Auto) Atkinson # (Auto) Eos # (Auto) Baso # (Auto) pO2 VBG pH VBG pCO2 VBG HCO3 VBG Total CO2 VBG O2 Sat (Calc) VBG Base Excess VBG Potassium Glucose Lactate FiO2 Crit Value Called To Crit Value Called By Crit Value Read Back Blood Gas Notified Time Sodium 137 Potassium 4.0 Chloride 105 Carbon Dioxide 28 Anion Gap 8 L BUN 12 Creatinine 0.7 L Est GFR ( Amer) > 60 Est GFR (Non-Af Amer) > 60 POC Glucose (mg/dL) 321 H Random Glucose 300 H Hemoglobin A1c Serum Osmolality Calcium 8.5 Total Bilirubin Direct Bilirubin AST ALT Alkaline Phosphatase Troponin I Total Protein Albumin Globulin Albumin/Globulin Ratio Triglycerides Cholesterol LDL Cholesterol Direct HDL Cholesterol Venous Blood Potassium Urine Color Urine Clarity Urine pH Ur Specific Hughes Urine Protein Urine Glucose (UA) Urine Ketones Urine Blood Urine Nitrate Urine Bilirubin Urine Urobilinogen Ur Leukocyte Esterase Urine RBC (Auto) Urine Microscopic WBC Ur Squamous Epith Cells 04/29/18 04/29/18 04/29/18 06:30 07:52 10:22 WBC RBC Hgb Hct MCV MCH MCHC RDW Plt Count MPV Neut % (Auto) Lymph % (Auto) Atkinson % (Auto) Eos % (Auto) Baso % (Auto) Neut # (Auto) Lymph # (Auto) Atkinson # (Auto) Eos # (Auto) Baso # (Auto) pO2 VBG pH VBG pCO2 VBG HCO3 VBG Total CO2 VBG O2 Sat (Calc) VBG Base Excess VBG Potassium Glucose Lactate FiO2 Crit Value Called To Crit Value Called By Crit Value Read Back Blood Gas Notified Time Sodium Potassium Chloride Carbon Dioxide Anion Gap BUN Creatinine Est GFR ( Amer) Est GFR (Non-Af Amer) POC Glucose (mg/dL) 244 H Random Glucose Hemoglobin A1c Serum Osmolality 298 Calcium Total Bilirubin 0.5 Direct Bilirubin 0.3 AST 108 H ALT 161 H Alkaline Phosphatase 130 H Troponin I Total Protein 6.9 Albumin 3.4 L Globulin 3.6 Albumin/Globulin Ratio 1.0 Triglycerides Cholesterol LDL Cholesterol Direct HDL Cholesterol Venous Blood Potassium Urine Color Urine Clarity Urine pH Ur Specific Hughes Urine Protein Urine Glucose (UA) Urine Ketones Urine Blood Urine Nitrate Urine Bilirubin Urine Urobilinogen Ur Leukocyte Esterase Urine RBC (Auto) Urine Microscopic WBC Ur Squamous Epith Cells 04/29/18 10:58 WBC RBC Hgb Hct MCV MCH MCHC RDW Plt Count MPV Neut % (Auto) Lymph % (Auto) Atkinson % (Auto) Eos % (Auto) Baso % (Auto) Neut # (Auto) Lymph # (Auto) Atkinson # (Auto) Eos # (Auto) Baso # (Auto) pO2 VBG pH VBG pCO2 VBG HCO3 VBG Total CO2 VBG O2 Sat (Calc) VBG Base Excess VBG Potassium Glucose Lactate FiO2 Crit Value Called To Crit Value Called By Crit Value Read Back Blood Gas Notified Time Sodium Potassium Chloride Carbon Dioxide Anion Gap BUN Creatinine Est GFR ( Amer) Est GFR (Non-Af Amer) POC Glucose (mg/dL) 189 H Random Glucose Hemoglobin A1c Serum Osmolality Calcium Total Bilirubin Direct Bilirubin AST ALT Alkaline Phosphatase Troponin I Total Protein Albumin Globulin Albumin/Globulin Ratio Triglycerides Cholesterol LDL Cholesterol Direct HDL Cholesterol Venous Blood Potassium Urine Color Urine Clarity Urine pH Ur Specific Hughes Urine Protein Urine Glucose (UA) Urine Ketones Urine Blood Urine Nitrate Urine Bilirubin Urine Urobilinogen Ur Leukocyte Esterase Urine RBC (Auto) Urine Microscopic WBC Ur Squamous Epith Cells Assessment & Plan (1) Balanitis Status: Acute (2) HIV (human immunodeficiency virus infection) Status: Acute (3) Hyperglycemia Status: Acute - Assessment and Plan (Free Text) Assessment: A/P- 47 year old amle with HIV ( on harrt well controled ) admitted as per my advice after his office labs were noted to be glucose of 600 and elevated LFTs 2 days ago. afebrile normal wbc count new onset diabetes with very high glucose and Hgb- A1c from 2 days ago 10.9 new onset transaminitis and high ALP. candidal balanitis. + UA. Plan- new onset DM Ii- advise endo consult . advise to start pt. on insulin as per hospitalist. change in diet and lifestyle d/w patient at length. advise to have diabetic nurse educator see the patient. would advise to start low dose metfromin as both htis and truvada are cleared renally and combomay increase metformin level. may need to be started on levemir as well. HIV- continue with his truvada 1 tab daily and raltegrvair 400 mg BID regimen. CD4 and Vl done 2 days ago at local lab , awaiting result. balanitis- fluconazole 150 mg po x once. flagyl 2 gram po x once. check urien cx. advise ceftriaxone 1 gram daily while inpatietn , pending urine culture result. transminitis- advised to check abd Ct r/o any liver pathology . advised at length about d/c tylenol PM and avoiding any hepatotoxic agents. All above d/w patient at length adn he verbalizes full understanding of all above and agrees with above plan of . plan also d/w hospitalist at length. thank you for this Consult.
[2018-04-29 11:01] LABS: ALBUMIN 3.4 g/dL (3.5-5.0); BILIRUBIN,DIRECT 0.3 mg/ml (0.0-0.4)
--- NOTE | 2018-04-29 11:48 | RAD ---
Date of service: 04/28/2018 HISTORY: dyspnea COMPARISON: Chest radiographs 10/27/2010. FINDINGS: LUNGS: No active pulmonary disease. PLEURA: No significant pleural effusion identified, no pneumothorax apparent. CARDIOVASCULAR: Normal. OSSEOUS STRUCTURES: No significant abnormalities. VISUALIZED UPPER ABDOMEN: Normal. OTHER FINDINGS: None. IMPRESSION: No acute cardiopulmonary disease appreciated.
[2018-04-29] MEDS ORDERED: Fluconazole 150 MG TAB PO ONE (12:44)
--- NOTE | 2018-04-29 12:47 | CP.PCM.DIS ---
Provider - Provider Date of Admission: 04/28/18 18:28 Attending physician: Isiah Ivey MD Hospital Course - Lab Results Lab Results: Most Recent Lab Values WBC 6.2 K/uL (4.8-10.8) 04/29/18 05:25 RBC 4.59 Mil/uL (4.40-5.90) 04/29/18 05:25 Hgb 13.1 g/dL (12.0-18.0) 04/29/18 05:25 Hct 38.9 % (35.0-51.0) 04/29/18 05:25 MCV 84.7 fl (80.0-94.0) 04/29/18 05:25 MCH 28.5 pg (27.0-31.0) 04/29/18 05:25 MCHC 33.7 g/dL (33.0-37.0) 04/29/18 05:25 RDW 13.6 % (11.5-14.5) 04/29/18 05:25 Plt Count 129 K/uL (130-400) L 04/29/18 05:25 MPV 10.3 fl (7.2-11.7) 04/28/18 17:35 Neut % (Auto) 64.5 % (50.0-75.0) 04/28/18 17:35 Lymph % (Auto) 26.8 % (20.0-40.0) 04/28/18 17:35 Cascade % (Auto) 7.3 % (0.0-10.0) 04/28/18 17:35 Eos % (Auto) 0.6 % (0.0-4.0) 04/28/18 17:35 Baso % (Auto) 0.8 % (0.0-2.0) 04/28/18 17:35 Neut # (Auto) 5.2 K/uL (1.8-7.0) 04/28/18 17:35 Lymph # (Auto) 2.2 K/uL (1.0-4.3) 04/28/18 17:35 Cascade # (Auto) 0.6 K/uL (0.0-0.8) 04/28/18 17:35 Eos # (Auto) 0.0 K/uL (0.0-0.7) 04/28/18 17:35 Baso # (Auto) 0.1 K/uL (0.0-0.2) 04/28/18 17:35 pO2 56 mm/Hg (30-55) H 04/28/18 17:38 VBG pH 7.41 (7.32-7.43) 04/28/18 17:38 VBG pCO2 38 mmHg (40-60) L 04/28/18 17:38 VBG HCO3 24.5 mmol/L 04/28/18 17:38 VBG Total CO2 25.3 mmol/L (22-28) 04/28/18 17:38 VBG O2 Sat (Calc) 92.8 % (40-65) H 04/28/18 17:38 VBG Base Excess -0.3 mmol/L (0.0-2.0) L 04/28/18 17:38 VBG Potassium 4.7 mmol/L (3.6-5.2) 04/28/18 17:38 Sodium 128.0 mmol/L (132-148) L 04/28/18 17:38 Chloride 92.0 mmol/L (98-107) L 04/28/18 17:38 Glucose 713 mg/dL (75-110) H* 04/28/18 17:38 Lactate 1.8 mmol/L (0.7-2.1) 04/28/18 17:38 FiO2 21.0 % 04/28/18 17:38 Crit Value Called To bernie Garcia md 04/28/18 17:38 Crit Value Called By Carrie boone 04/28/18 17:38 Crit Value Read Back Y 04/28/18 17:38 Blood Gas Notified Time 1750 04/28/18 17:38 Sodium 137 mmol/l (132-148) 04/29/18 05:25 Potassium 4.0 MMOL/L (3.6-5.0) 04/29/18 05:25 Chloride 105 mmol/L (98-107) 04/29/18 05:25 Carbon Dioxide 28 mmol/L (22-30) 04/29/18 05:25 Anion Gap 8 (10-20) L 04/29/18 05:25 BUN 12 mg/dl (9-20) 04/29/18 05:25 Creatinine 0.7 mg/dl (0.8-1.5) L 04/29/18 05:25 Est GFR ( Amer) > 60 04/29/18 05:25 Est GFR (Non-Af Amer) > 60 04/29/18 05:25 POC Glucose (mg/dL) 189 mg/dL (65-110) H 04/29/18 10:58 Random Glucose 300 mg/dL (75-110) H 04/29/18 05:25 Hemoglobin A1c 10.7 % (4.2-6.5) H 04/28/18 20:47 Serum Osmolality 298 mosm/kg (272-300) 04/29/18 06:30 Calcium 8.5 mg/dL (8.4-10.2) 04/29/18 05:25 Total Bilirubin 0.5 mg/dl (0.2-1.3) 04/29/18 10:22 Direct Bilirubin 0.3 mg/ml (0.0-0.4) 04/29/18 10:22 AST 108 U/L (17-59) H 04/29/18 10:22 ALT 161 U/L (21-72) H 04/29/18 10:22 Alkaline Phosphatase 130 U/L (38-126) H 04/29/18 10:22 Troponin I < 0.0120 ng/mL (0.00-0.120) 04/28/18 17:35 Total Protein 6.9 G/DL (6.3-8.2) 04/29/18 10:22 Albumin 3.4 g/dL (3.5-5.0) L 04/29/18 10:22 Globulin 3.6 gm/dL (2.2-3.9) 04/29/18 10:22 Albumin/Globulin Ratio 1.0 (1.0-2.1) 04/29/18 10:22 Triglycerides 280 mg/DL (0-149) H 04/28/18 20:47 Cholesterol 151 mg/dL (0-199) 04/28/18 20:47 LDL Cholesterol Direct 93 mg/dL (0-129) 04/28/18 20:47 HDL Cholesterol 26 MG/DL (30-70) L 04/28/18 20:47 Venous Blood Potassium 4.7 mmol/L (3.6-5.2) 04/28/18 17:38 Urine Color Straw (YELLOW) 04/28/18 17:21 Urine Clarity Slighty-cloudy (Clear) 04/28/18 17:21 Urine pH 6.0 (5.0-8.0) 04/28/18 17:21 Ur Specific Hayes 1.031 (1.003-1.030) H 04/28/18 17:21 Urine Protein Negative mg/dL (NEGATIVE) 04/28/18 17:21 Urine Glucose (UA) >=500 mg/dL (Normal) 04/28/18 17:21 Urine Ketones Trace mg/dL (NEGATIVE) 04/28/18 17:21 Urine Blood Small (NEGATIVE) 04/28/18 17:21 Urine Nitrate Negative (NEGATIVE) 04/28/18 17:21 Urine Bilirubin Negative (NEGATIVE) 04/28/18 17:21 Urine Urobilinogen 0.2-1.0 mg/dL (0.2-1.0) 04/28/18 17:21 Ur Leukocyte Esterase Large Kishor/uL (Negative) 04/28/18 17:21 Urine RBC (Auto) 7 /hpf (0-3) H 04/28/18 17:21 Urine Microscopic WBC 12 /hpf (0-5) H 04/28/18 17:21 Ur Squamous Epith Cells 2 /hpf (0-5) 04/28/18 17:21 Discharge Exam - Head Exam Head Exam: ATRAUMATIC, NORMOCEPHALIC Discharge Plan - Follow Up Plan Condition: FAIR Disposition: HOME/ ROUTINE
--- NOTE | 2018-04-29 13:58 | CP.PCM.PN ---
Subjective - Date & Time of Evaluation Date of Evaluation: 04/29/18 Time of Evaluation: 09:35 - Subjective Subjective: Patient was seen and examined this AM. He reported that he slept well last night. He stated he sill feels thirsy, but denied any fever, chills, chest pain, or shortness of breath. Objective - Vital Signs/Intake and Output Vital Signs (last 24 hours): Temp Pulse Resp BP Pulse Ox 98.4 F 94 H 20 109/70 98 04/29/18 07:41 04/29/18 07:41 04/29/18 07:41 04/29/18 07:41 04/29/18 07:41 - Medications Medications: Current Medications Dextrose (Dextrose 50% Inj) 0 ml IV STAT PRN; Protocol PRN Reason: Hypoglycemia Protocol Dextrose (Glutose 15) 0 gm PO ONCE PRN; Protocol PRN Reason: Hypoglycemia Protocol Enoxaparin Sodium (Lovenox) 40 mg SC DAILY MEDHAT; Protocol Last Admin: 04/29/18 08:38 Dose: 40 mg Glucagon (Glucagen Diagnostic Kit) 0 mg IM STAT PRN; Protocol PRN Reason: Hypoglycemia Protocol Sodium Chloride (Sodium Chloride 0.9%) 1,000 mls @ 200 mls/hr IV .Q5H MEDHAT Stop: 04/30/18 06:42 Last Admin: 04/29/18 12:38 Dose: 200 mls/hr Insulin Human Lispro (Humalog) 0 units SC ACHS MEDHAT; Protocol Last Admin: 04/29/18 12:41 Dose: 1 unit Nitrofurantoin Macrocrystals (Macrobid) 100 mg PO Q12 MEDHAT; Protocol Last Admin: 04/29/18 08:37 Dose: 100 mg Ondansetron HCl (Zofran Inj) 4 mg IVP Q6 PRN PRN Reason: Nausea/Vomiting - Labs Labs: 04/29/18 05:25 04/29/18 05:25 - Constitutional Appears: No Acute Distress - Head Exam Head Exam: ATRAUMATIC, NORMAL INSPECTION - Respiratory Exam Respiratory Exam: Clear to Ausculation Bilateral - Cardiovascular Exam Cardiovascular Exam: REGULAR RHYTHM, +S1, +S2 - GI/Abdominal Exam GI & Abdominal Exam: Soft, Normal Bowel Sounds - Extremities Exam Extremities Exam: Full ROM, Normal Inspection Additional comments: calves nontender, no pedal edema - Neurological Exam Neurological Exam: Alert, Awake, Oriented x3 - Psychiatric Exam Psychiatric exam: Normal Affect, Normal Mood Assessment and Plan - Assessment and Plan (Free Text) Assessment: 47 y/o M with a history of HIV on HAART therapy was admitted for symptomatic hyperglycemia. 1) Hyperglycemia -Continue IV fluids. -Continue Accucheck. -Insulin Lispro medium coverage scale. -Continue NPO. -Hemoglobin A1C. -Continue zofran PRN nausea 2) Uncomplicated UTI -Large LE/WBCs on UA -Continue Macrobid 100mg BID. 3) Elevated Transaminases -hold HAART Meds -Ordered liver ultrasound. 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 Will fu recommendations.
--- NOTE | 2018-04-29 14:02 | US ---
Date of service: 04/29/2018 HISTORY: elevated LFTs COMPARISON: Abdomen ultrasound 10/27/2010. TECHNIQUE: Sonographic evaluation of the right upper quadrant of the abdomen. FINDINGS: LIVER: Measures 19.9 cm in length. Diffusely increased echogenicity of the liver parenchyma is identified suggesting infiltrative disorder such is hepatic steatosis though others are possible. No mass. No intrahepatic bile duct dilatation. GALLBLADDER: Unremarkable. No gallstones. COMMON BILE DUCT: Measures 3.7 mm. No stones. No dilatation. PANCREAS: The body of pancreas appears unremarkable with the head and tail obscured by overlying bowel gas. RIGHT KIDNEY: Measures 11.9 cm in length. Normal echogenicity. No calculus, mass, or hydronephrosis. AORTA: No aneurysmal dilatation. IVC: Unremarkable. OTHER FINDINGS: None . IMPRESSION: Borderline hepatomegaly. Hepatic steatosis identified or other infiltrative process. No biliary tree dilatation grossly evident. Partial imaging of the pancreas with remainder the examination unremarkable.
[2018-04-29] MEDS ORDERED: Insulin Detemir 100 Units/ml Inj SC SCH (22:00)
[2018-04-29 23:57] VITALS: RESP 20
[2018-04-30 07:16] LABS: ALBUMIN 3.5 g/dL (3.5-5.0); BLOOD UREA NITROGEN 9 mg/dl (9-20); CALCIUM 8.5 mg/dL (8.4-10.2); GFR NON-AFRICAN AMERICAN > 60
[2018-04-30 07:17] LABS: ALT/SGPT 177 U/L (21-72); AST/SGOT 117 U/L (17-59)
[2018-04-30] MEDS: Insulin Lispro (humaLOG) 100 Units/ml Inj SC SCH ×3 (07:39→16:50)
[2018-04-30] MEDS: Sodium Chloride 0.9% 1,000 ML IV SCH (07:41)
[2018-04-30] MEDS: Enoxaparin 40 mg Syringe SC SCH (08:19)
--- NOTE | 2018-04-30 09:07 | CP.PCM.PN ---
Subjective - Date & Time of Evaluation Date of Evaluation: 04/30/18 Time of Evaluation: 09:07 - Subjective Subjective: ID note- Pt. seen and examined today. he states he is feeling much better. he was taught by nurse how to check FS and how to inject levemir. he stats he will be much more careful with his diet from now on. dysurea has resolved as per pt. and his balanitis much improved. Objective - Vital Signs/Intake and Output Vital Signs (last 24 hours): Temp Pulse Resp BP Pulse Ox 98.3 F 65 20 112/73 98 04/30/18 08:00 04/30/18 08:00 04/30/18 08:00 04/30/18 08:00 04/30/18 08:00 - Medications Medications: Current Medications Dextrose (Dextrose 50% Inj) 0 ml IV STAT PRN; Protocol PRN Reason: Hypoglycemia Protocol Dextrose (Glutose 15) 0 gm PO ONCE PRN; Protocol PRN Reason: Hypoglycemia Protocol Enoxaparin Sodium (Lovenox) 40 mg SC DAILY MEDHAT; Protocol Last Admin: 04/30/18 08:19 Dose: 40 mg Glucagon (Glucagen Diagnostic Kit) 0 mg IM STAT PRN; Protocol PRN Reason: Hypoglycemia Protocol Ceftriaxone Sodium 1 gm/ (Sodium Chloride) 100 mls @ 100 mls/hr IVPB DAILY MEDHAT; Protocol Last Admin: 04/30/18 08:18 Dose: 100 mls/hr Sodium Chloride (Sodium Chloride 0.9%) 1,000 mls @ 100 mls/hr IV .Q10H MEDHAT Stop: 04/30/18 18:07 Last Admin: 04/30/18 07:41 Dose: 100 mls/hr Insulin Detemir (Levemir) 5 units SC HS MEDHAT Last Admin: 04/29/18 21:53 Dose: 5 units Insulin Human Lispro (Humalog) 0 units SC ACHS MEDHAT; Protocol Last Admin: 04/30/18 07:39 Dose: 3 unit Ondansetron HCl (Zofran Inj) 4 mg IVP Q6 PRN PRN Reason: Nausea/Vomiting Last Admin: 04/29/18 17:25 Dose: 4 mg - Labs Labs: - Additional Findings Additional findings: - Constitutional Appears: Non-toxic, No Acute Distress - Head Exam Head Exam: ATRAUMATIC - Eye Exam Eye Exam: EOMI, PERRL - ENT Exam Additional comments: dry oral mucosa Minimal oral thrush ( new) - Neck Exam Neck exam: Positive for: Full Rom - Respiratory Exam Respiratory Exam: Clear to Auscultation Bilateral, NORMAL BREATHING PATTERN - Cardiovascular Exam Cardiovascular Exam: RRR, +S1, +S2 - GI/Abdominal Exam GI & Abdominal Exam: Normal Bowel Sounds, Soft Additional comments: Nt, ND No CVA tenderness B/L - Exam Additional comments: balanitis almost resolved - Extremities Exam Extremities exam: Positive for: normal inspection - Neurological Exam Neurological exam: Alert, CN II-XII Intact, Oriented x 3 Laboratory Results - last 72 hr 04/28/18 04/28/18 04/28/18 16:59 17:21 17:35 WBC 8.1 RBC 4.80 Hgb 14.3 Hct 41.1 MCV 85.7 D MCH 29.8 MCHC 34.7 RDW 13.5 Plt Count 147 MPV 10.3 Neut % (Auto) 64.5 Lymph % (Auto) 26.8 [place] % (Auto) 7.3 Eos % (Auto) 0.6 Baso % (Auto) 0.8 Neut # (Auto) 5.2 Lymph # (Auto) 2.2 [place] # (Auto) 0.6 Eos # (Auto) 0.0 Baso # (Auto) 0.1 pO2 VBG pH VBG pCO2 VBG HCO3 VBG Total CO2 VBG O2 Sat (Calc) VBG Base Excess VBG Potassium Glucose Lactate FiO2 Crit Value Called To Crit Value Called By Crit Value Read Back Blood Gas Notified Time Sodium Potassium Chloride Carbon Dioxide Anion Gap BUN Creatinine Est GFR ( Amer) Est GFR (Non-Af Amer) POC Glucose (mg/dL) > 500 H* Random Glucose Hemoglobin A1c Serum Osmolality Calcium Total Bilirubin Direct Bilirubin AST ALT Alkaline Phosphatase Troponin I Total Protein Albumin Globulin Albumin/Globulin Ratio Triglycerides Cholesterol LDL Cholesterol Direct HDL Cholesterol Venous Blood Potassium Urine Color Straw Urine Clarity Slighty-cloudy Urine pH 6.0 Ur Specific [place] 1.031 H Urine Protein Negative Urine Glucose (UA) >=500 Urine Ketones Trace Urine Blood Small Urine Nitrate Negative Urine Bilirubin Negative Urine Urobilinogen 0.2-1.0 Ur Leukocyte Esterase Large Urine RBC (Auto) 7 H Urine Microscopic WBC 12 H Ur Squamous Epith Cells 2 04/28/18 04/28/18 04/28/18 17:35 17:38 19:34 WBC RBC Hgb Hct MCV MCH MCHC RDW Plt Count MPV Neut % (Auto) Lymph % (Auto) [place] % (Auto) Eos % (Auto) Baso % (Auto) Neut # (Auto) Lymph # (Auto) [place] # (Auto) Eos # (Auto) Baso # (Auto) pO2 56 H VBG pH 7.41 VBG pCO2 38 L VBG HCO3 24.5 VBG Total CO2 25.3 VBG O2 Sat (Calc) 92.8 H VBG Base Excess -0.3 L VBG Potassium 4.7 Glucose 713 H* Lactate 1.8 FiO2 21.0 Crit Value Called To bernie Garcia md Crit Value Called By Carrie boone Crit Value Read Back Y Blood Gas Notified Time 1750 Sodium 128 L 128.0 L Potassium 4.9 Chloride 95 L 92.0 L Carbon Dioxide 20 L Anion Gap 18 BUN 16 Creatinine 0.7 L Est GFR ( Amer) > 60 Est GFR (Non-Af Amer) > 60 POC Glucose (mg/dL) 381 H Random Glucose 665 H* D Hemoglobin A1c Serum Osmolality Calcium 9.2 Total Bilirubin 0.9 Direct Bilirubin AST 116 H ALT 190 H Alkaline Phosphatase 154 H Troponin I < 0.0120 Total Protein 7.9 Albumin 4.0 Globulin 3.9 Albumin/Globulin Ratio 1.0 Triglycerides Cholesterol LDL Cholesterol Direct HDL Cholesterol Venous Blood Potassium 4.7 Urine Color Urine Clarity Urine pH Ur Specific [place] Urine Protein Urine Glucose (UA) Urine Ketones Urine Blood Urine Nitrate Urine Bilirubin Urine Urobilinogen Ur Leukocyte Esterase Urine RBC (Auto) Urine Microscopic WBC Ur Squamous Epith Cells 04/28/18 04/28/18 04/28/18 20:47 20:47 23:45 WBC RBC Hgb Hct MCV MCH MCHC RDW Plt Count MPV Neut % (Auto) Lymph % (Auto) [place] % (Auto) Eos % (Auto) Baso % (Auto) Neut # (Auto) Lymph # (Auto) [place] # (Auto) Eos # (Auto) Baso # (Auto) pO2 VBG pH VBG pCO2 VBG HCO3 VBG Total CO2 VBG O2 Sat (Calc) VBG Base Excess VBG Potassium Glucose Lactate FiO2 Crit Value Called To Crit Value Called By Crit Value Read Back Blood Gas Notified Time Sodium Potassium Chloride Carbon Dioxide Anion Gap BUN Creatinine Est GFR ( Amer) Est GFR (Non-Af Amer) POC Glucose (mg/dL) 419 H* Random Glucose Hemoglobin A1c 10.7 H Serum Osmolality Calcium Total Bilirubin Direct Bilirubin AST ALT Alkaline Phosphatase Troponin I Total Protein Albumin Globulin Albumin/Globulin Ratio Triglycerides 280 H Cholesterol 151 LDL Cholesterol Direct 93 HDL Cholesterol 26 L Venous Blood Potassium Urine Color Urine Clarity Urine pH Ur Specific [place] Urine Protein Urine Glucose (UA) Urine Ketones Urine Blood Urine Nitrate Urine Bilirubin Urine Urobilinogen Ur Leukocyte Esterase Urine RBC (Auto) Urine Microscopic WBC Ur Squamous Epith Cells 04/29/18 04/29/18 04/29/18 03:33 05:25 05:25 WBC 6.2 RBC 4.59 Hgb 13.1 Hct 38.9 MCV 84.7 MCH 28.5 MCHC 33.7 RDW 13.6 Plt Count 129 L MPV Neut % (Auto) Lymph % (Auto) [place] % (Auto) Eos % (Auto) Baso % (Auto) Neut # (Auto) Lymph # (Auto) [place] # (Auto) Eos # (Auto) Baso # (Auto) pO2 VBG pH VBG pCO2 VBG HCO3 VBG Total CO2 VBG O2 Sat (Calc) VBG Base Excess VBG Potassium Glucose Lactate FiO2 Crit Value Called To Crit Value Called By Crit Value Read Back Blood Gas Notified Time Sodium 137 Potassium 4.0 Chloride 105 Carbon Dioxide 28 Anion Gap 8 L BUN 12 Creatinine 0.7 L Est GFR ( Amer) > 60 Est GFR (Non-Af Amer) > 60 POC Glucose (mg/dL) 321 H Random Glucose 300 H Hemoglobin A1c Serum Osmolality Calcium 8.5 Total Bilirubin Direct Bilirubin AST ALT Alkaline Phosphatase Troponin I Total Protein Albumin Globulin Albumin/Globulin Ratio Triglycerides Cholesterol LDL Cholesterol Direct HDL Cholesterol Venous Blood Potassium Urine Color Urine Clarity Urine pH Ur Specific [place] Urine Protein Urine Glucose (UA) Urine Ketones Urine Blood Urine Nitrate Urine Bilirubin Urine Urobilinogen Ur Leukocyte Esterase Urine RBC (Auto) Urine Microscopic WBC Ur Squamous Epith Cells 04/29/18 04/29/18 04/29/18 06:30 07:52 10:22 WBC RBC Hgb Hct MCV MCH MCHC RDW Plt Count MPV Neut % (Auto) Lymph % (Auto) [place] % (Auto) Eos % (Auto) Baso % (Auto) Neut # (Auto) Lymph # (Auto) [place] # (Auto) Eos # (Auto) Baso # (Auto) pO2 VBG pH VBG pCO2 VBG HCO3 VBG Total CO2 VBG O2 Sat (Calc) VBG Base Excess VBG Potassium Glucose Lactate FiO2 Crit Value Called To Crit Value Called By Crit Value Read Back Blood Gas Notified Time Sodium Potassium Chloride Carbon Dioxide Anion Gap BUN Creatinine Est GFR ( Amer) Est GFR (Non-Af Amer) POC Glucose (mg/dL) 244 H Random Glucose Hemoglobin A1c Serum Osmolality 298 Calcium Total Bilirubin 0.5 Direct Bilirubin 0.3 AST 108 H ALT 161 H Alkaline Phosphatase 130 H Troponin I Total Protein 6.9 Albumin 3.4 L Globulin 3.6 Albumin/Globulin Ratio 1.0 Triglycerides Cholesterol LDL Cholesterol Direct HDL Cholesterol Venous Blood Potassium Urine Color Urine Clarity Urine pH Ur Specific [place] Urine Protein Urine Glucose (UA) Urine Ketones Urine Blood Urine Nitrate Urine Bilirubin Urine Urobilinogen Ur Leukocyte Esterase Urine RBC (Auto) Urine Microscopic WBC Ur Squamous Epith Cells 04/29/18 04/29/18 04/29/18 10:58 15:37 21:52 WBC RBC Hgb Hct MCV MCH MCHC RDW Plt Count MPV Neut % (Auto) Lymph % (Auto) [place] % (Auto) Eos % (Auto) Baso % (Auto) Neut # (Auto) Lymph # (Auto) [place] # (Auto) Eos # (Auto) Baso # (Auto) pO2 VBG pH VBG pCO2 VBG HCO3 VBG Total CO2 VBG O2 Sat (Calc) VBG Base Excess VBG Potassium Glucose Lactate FiO2 Crit Value Called To Crit Value Called By Crit Value Read Back Blood Gas Notified Time Sodium Potassium Chloride Carbon Dioxide Anion Gap BUN Creatinine Est GFR ( Amer) Est GFR (Non-Af Amer) POC Glucose (mg/dL) 189 H 232 H 293 H Random Glucose Hemoglobin A1c Serum Osmolality Calcium Total Bilirubin Direct Bilirubin AST ALT Alkaline Phosphatase Troponin I Total Protein Albumin Globulin Albumin/Globulin Ratio Triglycerides Cholesterol LDL Cholesterol Direct HDL Cholesterol Venous Blood Potassium Urine Color Urine Clarity Urine pH Ur Specific [place] Urine Protein Urine Glucose (UA) Urine Ketones Urine Blood Urine Nitrate Urine Bilirubin Urine Urobilinogen Ur Leukocyte Esterase Urine RBC (Auto) Urine Microscopic WBC Ur Squamous Epith Cells 04/30/18 04/30/18 04/30/18 05:50 07:37 10:50 WBC RBC Hgb Hct MCV MCH MCHC RDW Plt Count MPV Neut % (Auto) Lymph % (Auto) [place] % (Auto) Eos % (Auto) Baso % (Auto) Neut # (Auto) Lymph # (Auto) [place] # (Auto) Eos # (Auto) Baso # (Auto) pO2 VBG pH VBG pCO2 VBG HCO3 VBG Total CO2 VBG O2 Sat (Calc) VBG Base Excess VBG Potassium Glucose Lactate FiO2 Crit Value Called To Crit Value Called By Crit Value Read Back Blood Gas Notified Time Sodium 134 Potassium 4.1 Chloride 102 Carbon Dioxide 27 Anion Gap 9 L BUN 9 Creatinine 0.7 L Est GFR ( Amer) > 60 Est GFR (Non-Af Amer) > 60 POC Glucose (mg/dL) 279 H 249 H Random Glucose 280 H Hemoglobin A1c Serum Osmolality Calcium 8.5 Total Bilirubin 0.6 Direct Bilirubin AST 117 H ALT 177 H Alkaline Phosphatase 99 Troponin I Total Protein 7.1 Albumin 3.5 Globulin 3.6 Albumin/Globulin Ratio 1.0 Triglycerides Cholesterol LDL Cholesterol Direct HDL Cholesterol Venous Blood Potassium Urine Color Urine Clarity Urine pH Ur Specific [place] Urine Protein Urine Glucose (UA) Urine Ketones Urine Blood Urine Nitrate Urine Bilirubin Urine Urobilinogen Ur Leukocyte Esterase Urine RBC (Auto) Urine Microscopic WBC Ur Squamous Epith Cells 04/30/18 15:51 WBC RBC Hgb Hct MCV MCH MCHC RDW Plt Count MPV Neut % (Auto) Lymph % (Auto) [place] % (Auto) Eos % (Auto) Baso % (Auto) Neut # (Auto) Lymph # (Auto) [place] # (Auto) Eos # (Auto) Baso # (Auto) pO2 VBG pH VBG pCO2 VBG HCO3 VBG Total CO2 VBG O2 Sat (Calc) VBG Base Excess VBG Potassium Glucose Lactate FiO2 Crit Value Called To Crit Value Called By Crit Value Read Back Blood Gas Notified Time Sodium Potassium Chloride Carbon Dioxide Anion Gap BUN Creatinine Est GFR ( Amer) Est GFR (Non-Af Amer) POC Glucose (mg/dL) 324 H Random Glucose Hemoglobin A1c Serum Osmolality Calcium Total Bilirubin Direct Bilirubin AST ALT Alkaline Phosphatase Troponin I Total Protein Albumin Globulin Albumin/Globulin Ratio Triglycerides Cholesterol LDL Cholesterol Direct HDL Cholesterol Venous Blood Potassium Urine Color Urine Clarity Urine pH Ur Specific [place] Urine Protein Urine Glucose (UA) Urine Ketones Urine Blood Urine Nitrate Urine Bilirubin Urine Urobilinogen Ur Leukocyte Esterase Urine RBC (Auto) Urine Microscopic WBC Ur Squamous Epith Cells Assessment and Plan (1) Balanitis Status: Acute (2) HIV (human immunodeficiency virus infection) Status: Acute (3) Hyperglycemia Status: Acute - Assessment and Plan (Free Text) Assessment: A/P- 47 year old male with HIV ( on harrt well controled ) admitted as per my advice after his office labs were noted to be glucose of 600 and elevated LFTs 2 days ago. glucose much better now. transaminitis trending down. balanitis resolved. Plan- new onset DM Ii- advise endo f/u as outpatient. will be d/c on leven=joya and low dose metformin as per hospitalist. check FS daily. HIV- continue with his truvada 1 tab daily and raltegrvair 400 mg BID regimen. CD4 and Vl done 2 days ago at local lab , awaiting result. balanitis- fluconazole 150 mg po x once. flagyl 2 gram po x once. d/c ceftriaxone. urine cx pending, will f/u as outpatient. transminitis- liver us reported as steatohepatitis. LFTs trending down. advise to avoid any ETH and any hepatotoxic agents. pt. to f/u with me next week in the office. Patient verbalizes full understanding of all above and agrees with above plan of care. plan also d/w hospitalist at length.
[2018-04-30] MEDS ORDERED: Insulin Detemir 100 Units/ml Inj SC STA (10:16)
[2018-04-30] MEDS ORDERED: Emtricitabine-Tenofovir 200 mg-300 mg Tab PO SCH (12:00)
--- NOTE | 2018-04-30 12:36 | CP.PCM.DIS ---
<Clara Phoenix - Last Filed: 04/30/18 18:42> Provider - Provider Date of Admission: 04/28/18 18:28 Attending physician: Isiah Ivey MD Time Spent in preparation of Discharge (in minutes): 60 Diagnosis - Discharge Diagnosis (1) Diabetes mellitus Status: Acute (2) Elevated transaminase level Status: Acute (3) Balanitis Status: Acute (4) HIV (human immunodeficiency virus infection) Status: Chronic Hospital Course - Lab Results Lab Results: Most Recent Lab Values WBC 6.2 K/uL (4.8-10.8) 04/29/18 05:25 RBC 4.59 Mil/uL (4.40-5.90) 04/29/18 05:25 Hgb 13.1 g/dL (12.0-18.0) 04/29/18 05:25 Hct 38.9 % (35.0-51.0) 04/29/18 05:25 MCV 84.7 fl (80.0-94.0) 04/29/18 05:25 MCH 28.5 pg (27.0-31.0) 04/29/18 05:25 MCHC 33.7 g/dL (33.0-37.0) 04/29/18 05:25 RDW 13.6 % (11.5-14.5) 04/29/18 05:25 Plt Count 129 K/uL (130-400) L 04/29/18 05:25 MPV 10.3 fl (7.2-11.7) 04/28/18 17:35 Neut % (Auto) 64.5 % (50.0-75.0) 04/28/18 17:35 Lymph % (Auto) 26.8 % (20.0-40.0) 04/28/18 17:35 [place] % (Auto) 7.3 % (0.0-10.0) 04/28/18 17:35 Eos % (Auto) 0.6 % (0.0-4.0) 04/28/18 17:35 Baso % (Auto) 0.8 % (0.0-2.0) 04/28/18 17:35 Neut # (Auto) 5.2 K/uL (1.8-7.0) 04/28/18 17:35 Lymph # (Auto) 2.2 K/uL (1.0-4.3) 04/28/18 17:35 Highland # (Auto) 0.6 K/uL (0.0-0.8) 04/28/18 17:35 Eos # (Auto) 0.0 K/uL (0.0-0.7) 04/28/18 17:35 Baso # (Auto) 0.1 K/uL (0.0-0.2) 04/28/18 17:35 pO2 56 mm/Hg (30-55) H 04/28/18 17:38 VBG pH 7.41 (7.32-7.43) 04/28/18 17:38 VBG pCO2 38 mmHg (40-60) L 04/28/18 17:38 VBG HCO3 24.5 mmol/L 04/28/18 17:38 VBG Total CO2 25.3 mmol/L (22-28) 04/28/18 17:38 VBG O2 Sat (Calc) 92.8 % (40-65) H 04/28/18 17:38 VBG Base Excess -0.3 mmol/L (0.0-2.0) L 04/28/18 17:38 VBG Potassium 4.7 mmol/L (3.6-5.2) 04/28/18 17:38 Sodium 128.0 mmol/L (132-148) L 04/28/18 17:38 Chloride 92.0 mmol/L (98-107) L 04/28/18 17:38 Glucose 713 mg/dL (75-110) H* 04/28/18 17:38 Lactate 1.8 mmol/L (0.7-2.1) 04/28/18 17:38 FiO2 21.0 % 04/28/18 17:38 Crit Value Called To bernie Garcia md 04/28/18 17:38 Crit Value Called By Carrie boone 04/28/18 17:38 Crit Value Read Back Y 04/28/18 17:38 Blood Gas Notified Time 1750 04/28/18 17:38 Sodium 134 mmol/l (132-148) 04/30/18 05:50 Potassium 4.1 MMOL/L (3.6-5.0) 04/30/18 05:50 Chloride 102 mmol/L (98-107) 04/30/18 05:50 Carbon Dioxide 27 mmol/L (22-30) 04/30/18 05:50 Anion Gap 9 (10-20) L 04/30/18 05:50 BUN 9 mg/dl (9-20) 04/30/18 05:50 Creatinine 0.7 mg/dl (0.8-1.5) L 04/30/18 05:50 Est GFR ( Amer) > 60 04/30/18 05:50 Est GFR (Non-Af Amer) > 60 04/30/18 05:50 POC Glucose (mg/dL) 249 mg/dL (65-110) H 04/30/18 10:50 Random Glucose 280 mg/dL (75-110) H 04/30/18 05:50 Hemoglobin A1c 10.7 % (4.2-6.5) H 04/28/18 20:47 Serum Osmolality 298 mosm/kg (272-300) 04/29/18 06:30 Calcium 8.5 mg/dL (8.4-10.2) 04/30/18 05:50 Total Bilirubin 0.6 mg/dl (0.2-1.3) 04/30/18 05:50 Direct Bilirubin 0.3 mg/ml (0.0-0.4) 04/29/18 10:22 AST 117 U/L (17-59) H 04/30/18 05:50 ALT 177 U/L (21-72) H 04/30/18 05:50 Alkaline Phosphatase 99 U/L (38-126) 04/30/18 05:50 Troponin I < 0.0120 ng/mL (0.00-0.120) 04/28/18 17:35 Total Protein 7.1 G/DL (6.3-8.2) 04/30/18 05:50 Albumin 3.5 g/dL (3.5-5.0) 04/30/18 05:50 Globulin 3.6 gm/dL (2.2-3.9) 04/30/18 05:50 Albumin/Globulin Ratio 1.0 (1.0-2.1) 04/30/18 05:50 Triglycerides 280 mg/DL (0-149) H 04/28/18 20:47 Cholesterol 151 mg/dL (0-199) 04/28/18 20:47 LDL Cholesterol Direct 93 mg/dL (0-129) 04/28/18 20:47 HDL Cholesterol 26 MG/DL (30-70) L 04/28/18 20:47 Venous Blood Potassium 4.7 mmol/L (3.6-5.2) 04/28/18 17:38 Urine Color Straw (YELLOW) 04/28/18 17:21 Urine Clarity Slighty-cloudy (Clear) 04/28/18 17:21 Urine pH 6.0 (5.0-8.0) 04/28/18 17:21 Ur Specific What Cheer 1.031 (1.003-1.030) H 04/28/18 17:21 Urine Protein Negative mg/dL (NEGATIVE) 04/28/18 17: Urine Glucose (UA) >=500 mg/dL (Normal) 04/28/18 17:21 Urine Ketones Trace mg/dL (NEGATIVE) 04/28/18 17:21 Urine Blood Small (NEGATIVE) 04/28/18 17:21 Urine Nitrate Negative (NEGATIVE) 04/28/18 17:21 Urine Bilirubin Negative (NEGATIVE) 04/28/18 17:21 Urine Urobilinogen 0.2-1.0 mg/dL (0.2-1.0) 04/28/18 17:21 Ur Leukocyte Esterase Large Kishor/uL (Negative) 04/28/18 17:21 Urine RBC (Auto) 7 /hpf (0-3) H 04/28/18 17:21 Urine Microscopic WBC 12 /hpf (0-5) H 04/28/18 17:21 Ur Squamous Epith Cells 2 /hpf (0-5) 04/28/18 17:21 - Hospital Course Hospital Course: 47 y/o M with a history of HIV (controlled on HAART therapy) who was sent to ED after lab results showed elevated glucose (600) as well as mildly elevated transaminases. A1c was found to be 10.7. Patient received diabetic education on new medication regimen, and necessary lifestyle change recommendations., New medication regimen for his DM includes [id number] unit HS, and Junavia 100mg PO QD, which were recommended by Dr. Colunga. Metformin was considered, but discontinued because of elevated transaminases. 1. 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 2. HIV (Chronic, controlled) -Truvada 1 tab QD -Raltegravir 400mb BID -Patient will fu with PMD in office as outpatient. 3. Transaminitis (Acute) -Patient will fu with PMD in office as outpatient. 4. Balanitis (Acute) -Medication regimen completed. Patient will fu with PMD in office as outpatient. Discharge Exam - Head Exam Head Exam: ATRAUMATIC - Neck Exam Neck exam: Full Rom - Respiratory Exam Respiratory Exam: Clear to PA & Lateral - Cardiovascular Exam Cardiovascular Exam: REGULAR RHYTHM, +S1, +S2 - GI/Abdominal Exam Additional comments: soft, nontender, no guarding, no rigidity - Extremities Exam Additional comments: calves- soft nontender - Neurological Exam Neurological exam: Alert, Oriented x3 - Psychiatric Exam Psychiatric exam: Normal Affect, Normal Mood - Skin Skin Exam: Dry Discharge Plan - Discharge Medications Prescriptions: Insulin Detemir [Levemir] 12 units SC HS 30 Days vial SITagliptin [Januvia] 100 mg PO DAILY #30 tab - Follow Up Plan Condition: FAIR Disposition: HOME/ ROUTINE Instructions: Insulin Injection, Hyperglycemia, Adult (DC), The ABCs of Diabetes, Diabetes and Diet Additional Instructions: follow up with primary MD 1 week Referrals: Katelin Cabrera MD [Family Provider] - Abigail Colunga MD [Medical Doctor] - <Anabell Ho - Last Filed: 04/30/18 18:53> Provider - Provider Date of Admission: 04/28/18 18:28 Attending physician: Isiah Ivey MD Hospital Course - Lab Results Lab Results: Most Recent Lab Values WBC 6.2 K/uL (4.8-10.8) 04/29/18 05:25 RBC 4.59 Mil/uL (4.40-5.90) 04/29/18 05:25 Hgb 13.1 g/dL (12.0-18.0) 04/29/18 05:25 Hct 38.9 % (35.0-51.0) 04/29/18 05:25 MCV 84.7 fl (80.0-94.0) 04/29/18 05:25 MCH 28.5 pg (27.0-31.0) 04/29/18 05:25 MCHC 33.7 g/dL (33.0-37.0) 04/29/18 05:25 RDW 13.6 % (11.5-14.5) 04/29/18 05:25 Plt Count 129 K/uL (130-400) L 04/29/18 05:25 MPV 10.3 fl (7.2-11.7) 04/28/18 17:35 Neut % (Auto) 64.5 % (50.0-75.0) 04/28/18 17:35 Lymph % (Auto) 26.8 % (20.0-40.0) 04/28/18 17:35 [place] % (Auto) 7.3 % (0.0-10.0) 04/28/18 17:35 Eos % (Auto) 0.6 % (0.0-4.0) 04/28/18 17:35 Baso % (Auto) 0.8 % (0.0-2.0) 04/28/18 17:35 Neut # (Auto) 5.2 K/uL (1.8-7.0) 04/28/18 17:35 Lymph # (Auto) 2.2 K/uL (1.0-4.3) 04/28/18 17:35 [place] # (Auto) 0.6 K/uL (0.0-0.8) 04/28/18 17:35 Eos # (Auto) 0.0 K/uL (0.0-0.7) 04/28/18 17:35 Baso # (Auto) 0.1 K/uL (0.0-0.2) 04/28/18 17:35 pO2 56 mm/Hg (30-55) H 04/28/18 17:38 VBG pH 7.41 (7.32-7.43) 04/28/18 17:38 VBG pCO2 38 mmHg (40-60) L 04/28/18 17:38 VBG HCO3 24.5 mmol/L 04/28/18 17:38 VBG Total CO2 25.3 mmol/L (22-28) 04/28/18 17:38 VBG O2 Sat (Calc) 92.8 % (40-65) H 04/28/18 17:38 VBG Base Excess -0.3 mmol/L (0.0-2.0) L 04/28/18 17:38 VBG Potassium 4.7 mmol/L (3.6-5.2) 04/28/18 17:38 Sodium 128.0 mmol/L (132-148) L 04/28/18 17:38 Chloride 92.0 mmol/L (98-107) L 04/28/18 17:38 Glucose 713 mg/dL (75-110) H* 04/28/18 17:38 Lactate 1.8 mmol/L (0.7-2.1) 04/28/18 17:38 FiO2 21.0 % 04/28/18 17:38 Crit Value Called To bernie Garcia md 04/28/18 17:38 Crit Value Called By Carrie boone 04/28/18 17:38 Crit Value Read Back Y 04/28/18 17:38 Blood Gas Notified Time 1750 04/28/18 17:38 Sodium 134 mmol/l (132-148) 04/30/18 05:50 Potassium 4.1 MMOL/L (3.6-5.0) 04/30/18 05:50 Chloride 102 mmol/L (98-107) 04/30/18 05:50 Carbon Dioxide 27 mmol/L (22-30) 04/30/18 05:50 Anion Gap 9 (10-20) L 04/30/18 05:50 BUN 9 mg/dl (9-20) 04/30/18 05:50 Creatinine 0.7 mg/dl (0.8-1.5) L 04/30/18 05:50 Est GFR ( Amer) > 60 04/30/18 05:50 Est GFR (Non-Af Amer) > 60 04/30/18 05:50 POC Glucose (mg/dL) 324 mg/dL (65-110) H 04/30/18 15:51 Random Glucose 280 mg/dL (75-110) H 04/30/18 05:50 Hemoglobin A1c 10.7 % (4.2-6.5) H 04/28/18 20:47 Serum Osmolality 298 mosm/kg (272-300) 04/29/18 06:30 Calcium 8.5 mg/dL (8.4-10.2) 04/30/18 05:50 Total Bilirubin 0.6 mg/dl (0.2-1.3) 04/30/18 05:50 Direct Bilirubin 0.3 mg/ml (0.0-0.4) 04/29/18 10:22 AST 117 U/L (17-59) H 04/30/18 05:50 ALT 177 U/L (21-72) H 04/30/18 05:50 Alkaline Phosphatase 99 U/L (38-126) 04/30/18 05:50 Troponin I < 0.0120 ng/mL (0.00-0.120) 04/28/18 17:35 Total Protein 7.1 G/DL (6.3-8.2) 04/30/18 05:50 Albumin 3.5 g/dL (3.5-5.0) 04/30/18 05:50 Globulin 3.6 gm/dL (2.2-3.9) 04/30/18 05:50 Albumin/Globulin Ratio 1.0 (1.0-2.1) 04/30/18 05:50 Triglycerides 280 mg/DL (0-149) H 04/28/18 20:47 Cholesterol 151 mg/dL (0-199) 04/28/18 20:47 LDL Cholesterol Direct 93 mg/dL (0-129) 04/28/18 20:47 HDL Cholesterol 26 MG/DL (30-70) L 04/28/18 20:47 Venous Blood Potassium 4.7 mmol/L (3.6-5.2) 04/28/18 17:38 Urine Color Straw (YELLOW) 04/28/18 17:21 Urine Clarity Slighty-cloudy (Clear) 04/28/18 17:21 Urine pH 6.0 (5.0-8.0) 04/28/18 17:21 Ur Specific [place] 1.031 (1.003-1.030) H 04/28/18 17:21 Urine Protein Negative mg/dL (NEGATIVE) 04/28/18 17:21 Urine Glucose (UA) >=500 mg/dL (Normal) 04/28/18 17:21 Urine Ketones Trace mg/dL (NEGATIVE) 04/28/18 17:21 Urine Blood Small (NEGATIVE) 04/28/18 17:21 Urine Nitrate Negative (NEGATIVE) 04/28/18 17:21 Urine Bilirubin Negative (NEGATIVE) 04/28/18 17:21 Urine Urobilinogen 0.2-1.0 mg/dL (0.2-1.0) 04/28/18 17:21 Ur Leukocyte Esterase Large Kishor/uL (Negative) 04/28/18 17:21 Urine RBC (Auto) 7 /hpf (0-3) H 04/28/18 17:21 Urine Microscopic WBC 12 /hpf (0-5) H 04/28/18 17:21 Ur Squamous Epith Cells 2 /hpf (0-5) 04/28/18 17:21 Attending/Attestation - Attestation I have personally seen and examined this patient.: Yes I have fully participated in the care of the patient.: Yes I have reviewed all pertinent clinical information, including history, physical exam and plan: Yes Notes (Text): 1. New Onset DM type II - d/c home on Levemir 12 units SQ q hs - DM teaching done - accucheck ACHS - record reading and bring to PMD for adjustment of Levemir dose - Dr Colunga consulted - recommended adding Jacksonuvla
[2018-04-30 16:20] VITALS: BP 135/90; PULSE 56; TEMP 98.1; O2SAT 94
[2018-04-30] MEDS ORDERED: Insulin Detemir 100 Units/ml Inj SC SCH (22:00)
== END 2018-04-30 17:20 | disposition home or self-care (01) | DRG 638 ==
LOC: H.ER 16:45 → H.ERHOLD 18:28 → H.MEDSURG1 20:55
DX: E11.65 Type 2 diabetes mellitus with hyperglycemia (principal); E87.1 Hypo-osmolality and hyponatremia; N39.0 Urinary tract infection, site not specified; B37.0 Candidal stomatitis; R74.0 Nonspecific elevation of levels of transaminase and lactic acid dehydrogenase [LDH]; Z21 Asymptomatic human immunodeficiency virus [HIV] infection status; F12.90 Cannabis use, unspecified, uncomplicated; F17.210 Nicotine dependence, cigarettes, uncomplicated; B37.42 Candidal balanitis; K75.81 Nonalcoholic steatohepatitis (NASH)

== ENCOUNTER 2018-05-01 08:52 | Observation (INO) | payer BC ==
[2018-05-01 08:56] VITALS: BMI 23.6
[2018-05-01] MEDS ORDERED: Sodium Chloride 0.9% 1,000 ML IV STA (09:32)
--- NOTE | 2018-05-01 09:34 | ED PDOC ---
HPI: Abdomen Time Seen by Provider: 05/01/18 09:01 Chief Complaint (Nursing): Abdominal Pain Chief Complaint (Provider): Vomiting History Per: Patient Additional Complaint(s): 47 y/o male with history of HIV (managed on HAART therapy) and recent diagnosis of DM type II, (New medication regimen for his DM includes Urcridm37 unit HS, and Junavia 100mg PO QD, which were recommended by Dr. Colunga. Metformin was considered, but discontinued because of elevated transaminases.) presented to ED epigastric abdominal pain and vomiting since 10 pm last night. Pt reports > 10 episodes of nausea and vomiting, no diarrhea, no fever or chills, chest pain or SOB. Pt was discharged home from hospital yesterday after he was sent to ED for elevated glucose, noted by his PMD. Pt also admits 2 BMs since last night and reports "Black" stools. PMD: Armando Past Medical History Reviewed: Nursing Documentation, Vital Signs Vital Signs: Last Vital Signs Temp 98 F 05/01/18 08:53 Pulse 65 05/01/18 08:53 Resp BP 138/95 H 05/01/18 08:53 Pulse Ox 99 05/01/18 08:53 - Medical History PMH: Diabetes, HIV Denies: Hepatitis, HTN, Chronic Kidney Disease, Seizures, Sexually Transmitted Disease - Surgical History Surgical History: Appendectomy - Family History Family History: States: Unknown Family Hx - Social History Current smoker - smoking cessation education provided: No Alcohol: None Drugs: Denies - Home Medications Home Medications: Ambulatory Orders Medication Instructions Recorded Emtricitabine/Tenofovir Diso 1 tab PO DAILY 04/28/18 [Truvada 200 MG-300 MG] Fluconazole 150 mg PO ONCE 04/28/18 Multivitamin/Iron/Folic Acid 1 tab PO DAILY 04/28/18 [Centrum Complete Multivit Tab] Nystatin [Nystatin Oral Susp] 4 ml PO QID 04/28/18 Raltegravir Potassium [Isentress] 400 mg PO Q12 04/28/18 Insulin Detemir [Levemir] 12 units SC HS 30 Days vial 04/30/18 SITagliptin [Januvia] 100 mg PO DAILY #30 tab 04/30/18 - Allergies Allergies/Adverse Reactions: Allergies Allergy/AdvReac Type Severity Reaction Status Date / Time No Known Allergies Allergy Verified 10/06/18 08:59 Review of Systems ROS Statement: Except As Marked, All Systems Reviewed And Found Negative Gastrointestinal: Positive for: Nausea, Vomiting, Abdominal Pain Physical Exam - Reviewed Nursing Documentation Reviewed: Yes Vital Signs Reviewed: Yes - Physical Exam Appears: Positive for: Non-toxic, No Acute Distress, Uncomfortable Head Exam: Positive for: ATRAUMATIC, NORMAL INSPECTION, NORMOCEPHALIC Skin: Positive for: Normal Color, Warm, DRY Eye Exam: Positive for: EOMI, Normal appearance, PERRL ENT: Positive for: Normal ENT Inspection Neck: Positive for: Normal, Painless ROM Cardiovascular/Chest: Positive for: Regular Rate, Rhythm Respiratory: Positive for: CNT, Normal Breath Sounds Gastrointestinal/Abdominal: Positive for: Soft, Tenderness (epigastric abdominal tenderness) Back: Positive for: Normal Inspection Extremity: Positive for: Normal ROM Neurologic/Psych: Positive for: Alert, Oriented - Laboratory Results Result Diagrams: 05/01/18 10:10 05/01/18 10:10 - ECG O2 Sat by Pulse Oximetry: 99 Medical Decision Making Medical Decision Making: IV access established and treatment initiated with IVF, Zofran and Pepcid On re-eval< pt vomiting once again, reports pain continues. Given Reglan 10 mg and Morphine 2 mg GI cocktail given for pain as well. US review from on 04/29: IMPRESSION: Borderline hepatomegaly. Hepatic steatosis identified or other infiltrative process. No biliary tree dilatation grossly evident. Partial imaging of the pancreas with remainder the examination unremarkable. Labs resulted and reviewed by publications writer who demonstrated full understanding. Call placed to hospitalist, Dr. Ivey, who agrees with Obs-MS for intractable vomiting at this time. Disposition - Clinical Impression Clinical Impression: Abdominal discomfort, Intractable vomiting with nausea - Patient ED Disposition Is Patient to be Admitted: Yes - Disposition Disposition Time: 12:53 Condition: STABLE Forms: [employer] (Greek) - Pt Status Changed To: Hospital Disposition Of: Observation
--- NOTE | 2018-05-01 09:58 | RAD ---
Date of service: 05/01/2018 PROCEDURE: CHEST RADIOGRAPH, 1 VIEW HISTORY: med screening COMPARISON: 04/28/2018 FINDINGS: LUNGS: Clear. PLEURA: No pneumothorax or pleural fluid seen. CARDIOVASCULAR: Normal. OSSEOUS STRUCTURES: No significant abnormalities. VISUALIZED UPPER ABDOMEN: Normal. OTHER FINDINGS: None. IMPRESSION: No active disease.
[2018-05-01 10:21] LABS: BASO % 0.5 % (0.0-2.0); EOS % 0.1 % (0.0-4.0); LYMPH # 1.3 K/uL (1.0-4.3); LYMPH % 15.8 % (20.0-40.0); MEAN CORPUSCULAR HEMOGLOBIN 28.7 pg (27.0-31.0); MEAN CORPUSCULAR HGB CONC 33.3 g/dL (33.0-37.0); MEAN PLATELET VOLUME 10.7 fl (7.2-11.7); MONO # 0.4 K/uL (0.0-0.8); MONO % 4.9 % (0.0-10.0); NEUT # 6.6 K/uL (1.8-7.0); NEUT % 78.7 % (50.0-75.0); RBC 5.23 Mil/uL (4.40-5.90); RED CELL DISTRIBUTION WIDTH 13.5 % (11.5-14.5); WHITE BLOOD COUNT 8.4 K/uL (4.8-10.8)
[2018-05-01 10:54] LABS: ALBUMIN 4.5 g/dL (3.5-5.0); ALT/SGPT 207 U/L (21-72); AMYLASE 95 U/L (30-110); AST/SGOT 133 U/L (17-59); BLOOD UREA NITROGEN 11 mg/dl (9-20); CALCIUM 9.4 mg/dL (8.4-10.2); GFR NON-AFRICAN AMERICAN > 60; LIPASE 105 U/L (23-300)
[2018-05-01 10:56] LABS: SQUAMOUS EPITHIAL 1 /hpf (0-5); URINE BILIRUBIN NEGATIVE (NEGATIVE); URINE BLOOD SMALL (NEGATIVE); URINE CLARITY CLEAR (Clear); URINE COLOR YELLOW (YELLOW); URINE GLUCOSE (UA) >=500 mg/dL (Normal); URINE LEUKOCYTE ESTERASE NEG Leu/uL (Negative); URINE PROTEIN 100 mg/dL (NEGATIVE); URINE UROBILINOGEN 0.2-1.0 mg/dL (0.2-1.0)
[2018-05-01 11:06] LABS: BARBITURATES, UR NEGATIVE (NEGATIVE); BENZODIAZEPINES, UR NEGATIVE (NEGATIVE); OPIATES, UR NEGATIVE (NEGATIVE); PHENCYCLIDINE, UR NEGATIVE (NEGATIVE)
[2018-05-01 11:59] LABS: ABG ALLEN TEST YES; ARTERIAL BLOOD GAS HCO3 21.6 mmol/L (21-28); ARTERIAL BLOOD GAS O2 SAT 99.3 % (95-98); ARTERIAL BLOOD GAS PCO2 34 mm/Hg (35-45); ARTERIAL BLOOD GAS PH 7.38 (7.35-7.45); ARTERIAL BLOOD GAS PO2 87 mm/Hg (80-100); ARTERIAL BLOOD GAS TCO2 21.1 mmol/L (22-28)
[2018-05-01] MEDS ORDERED: Alum-Mag Hydrox-Simethicone Susp (30 mL) PO ONE (12:21)
--- NOTE | 2018-05-01 13:22 | CP.PCM.HP ---
<Estelle Hughes - Last Filed: 05/01/18 14:32> History of Present Illness - History of Present Illness History of Present Illness: 47 y/o male with PMH of HIV on HAART therapy, recently diagnosed DM-II, Transaminasemia in last admission comes to the [facility] for evaluation and treatment of 1 day history of nausea and vomiting. Patient was discharged home yesterday on Januvia and Levemir after evaluated for newly diagnosed DM-II. Patient reports he only took Levemir last night, denies taking Januvia. Patient reports eating salad last night with a small piece of chicken and started vomiting. He v omited whole night, NBMB. Patient denies any abdominal pain but reports 3 dark loose BM yesterday. Patient denies any recent travel, no-one else with same symptoms at home. Denies SOB, chest pain, dizziness, urinary symptoms or weakness. ROS: as per HPI, all other systems reviewed, found to be negative PMD: Foruzesh PMHx: HIV on HAART, recently diagnosed DM-II, Transaminasemia in last admission Meds: Isentress/truvada ALL: NKDA Social: denies ETOH/Tobacco/drug abuse FamilyHx: DM in maternal grandmother ED course: VS: 98F, 65HR, 138/95, Spo2 99 Patient vomited few times FOBT positive at bedside, sent to the lab CBC: WNL CMP: Significant for AST/ALT: 133/207 EKG CXR: Negative F/u Bcx and Ucx UTox: + Marijuana S/p Pepcid, Reglan, Zofran,and Morphine Present on Admission - Present on Admission Any Indicators Present on Admission: No Past Patient History - Past Medical History & Family History Past Medical History?: Yes - Past Social History Alcohol: None Drugs: Denies - CARDIAC Hx Hypertension: No - PULMONARY Hx Respiratory Disorders: No Hx Tuberculosis: No - NEUROLOGICAL Hx Seizures: No - HEENT Hx HEENT Problems: No - RENAL Hx Chronic Kidney Disease: No - ENDOCRINE/METABOLIC Hx Diabetes Mellitus Type 2: Yes - HEMATOLOGICAL/ONCOLOGICAL Hx Human Immunodeficiency Virus (HIV): Yes - INTEGUMENTARY Hx Dermatological Problems: No - MUSCULOSKELETAL/RHEUMATOLOGICAL Hx Musculoskeletal Disorders: No Hx Falls: No - GASTROINTESTINAL Hx Gastrointestinal Disorders: No - GENITOURINARY/GYNECOLOGICAL Hx Sexually Transmitted Disorders: No - PSYCHIATRIC Hx Psychophysiologic Disorder: No Hx Substance Use: No - SURGICAL HISTORY Hx Appendectomy: Yes - ANESTHESIA Hx Anesthesia: Yes Hx Anesthesia Reactions: No Meds Allergies/Adverse Reactions: Allergies Allergy/AdvReac Type Severity Reaction Status Date / Time No Known Allergies Allergy Verified 05/01/18 08:59 Physical Exam - Constitutional Appears: No Acute Distress - Head Exam Head Exam: NORMAL INSPECTION - Eye Exam Eye Exam: EOMI, Normal appearance, PERRL Pupil Exam: NORMAL ACCOMODATION - ENT Exam ENT Exam: Mucous Membranes Moist - Neck Exam Neck exam: Positive for: Normal Inspection - Respiratory Exam Respiratory Exam: Clear to Auscultation Bilateral, NORMAL BREATHING PATTERN - Cardiovascular Exam Cardiovascular Exam: REGULAR RHYTHM, +S1, +S2 - GI/Abdominal Exam GI & Abdominal Exam: Normal Bowel Sounds, Soft. absent: Diminished Bowel Sounds, Distended, Guarding, Rigid, Tenderness - Back Exam Back exam: NORMAL INSPECTION. absent: CVA tenderness (L), CVA tenderness (R) - Neurological Exam Neurological exam: Alert, CN II-XII Intact, Normal Gait, Oriented x3, Reflexes Normal - Psychiatric Exam Psychiatric exam: Normal Affect - Skin Skin Exam: Dry, Intact, Normal Color, Warm Results - Vital Signs Recent Vital Signs: Last Vital Signs Temp 98.5 F 05/01/18 12:39 Pulse 77 05/01/18 12:39 Resp 20 05/01/18 12:39 BP 134/71 05/01/18 12:39 Pulse Ox 99 05/01/18 12:53 - Labs Result Diagrams: 05/01/18 10:10 05/01/18 10:10 Labs: Laboratory Results - last 24 hr 05/01/18 05/01/18 05/01/18 10:10 10:10 10:11 WBC 8.4 RBC 5.23 Hgb 15.0 Hct 45.0 MCV 86.0 MCH 28.7 MCHC 33.3 RDW 13.5 Plt Count 166 MPV 10.7 Neut % (Auto) 78.7 H Lymph % (Auto) 15.8 L [place] % (Auto) 4.9 Eos % (Auto) 0.1 Baso % (Auto) 0.5 Neut # (Auto) 6.6 Lymph # (Auto) 1.3 [place] # (Auto) 0.4 Eos # (Auto) 0.0 Baso # (Auto) 0.0 pCO2 pO2 HCO3 ABG pH ABG Total CO2 ABG O2 Saturation ABG Base Excess Munir Test ABG Potassium A-a O2 Difference Glucose Lactate FiO2 Sodium 137 Potassium 4.2 Chloride 103 Carbon Dioxide 17 L Anion Gap 21 H BUN 11 Creatinine 0.6 L Est GFR ( Amer) > 60 Est GFR (Non-Af Amer) > 60 POC Glucose (mg/dL) 258 H Random Glucose 287 H Calcium 9.4 Total Bilirubin 1.1 AST 133 H ALT 207 H Alkaline Phosphatase 116 Troponin I < 0.0120 Total Protein 8.9 H Albumin 4.5 Globulin 4.5 H Albumin/Globulin Ratio 1.0 Amylase 95 Lipase 105 Arterial Blood Potassium Urine Color Urine Clarity Urine pH Ur Specific Spade Urine Protein Urine Glucose (UA) Urine Ketones Urine Blood Urine Nitrate Urine Bilirubin Urine Urobilinogen Ur Leukocyte Esterase Urine RBC (Auto) Urine Microscopic WBC Ur Squamous Epith Cells Urine Opiates Screen Urine Methadone Screen Ur Barbiturates Screen Ur Phencyclidine Scrn Ur Amphetamines Screen U Benzodiazepines Scrn U Oth Cocaine Metabols U Cannabinoids Screen 05/01/18 05/01/18 05/01/18 10:27 10:27 11:30 WBC RBC Hgb Hct MCV MCH MCHC RDW Plt Count MPV Neut % (Auto) Lymph % (Auto) [place] % (Auto) Eos % (Auto) Baso % (Auto) Neut # (Auto) Lymph # (Auto) [place] # (Auto) Eos # (Auto) Baso # (Auto) pCO2 34 L pO2 87 HCO3 21.6 ABG pH 7.38 ABG Total CO2 21.1 L ABG O2 Saturation 99.3 H ABG Base Excess -4.2 L Munir Test Yes ABG Potassium 3.8 A-a O2 Difference 20.0 Glucose 253 H Lactate 1.1 FiO2 21.0 Sodium 133.0 Potassium Chloride 100.0 Carbon Dioxide Anion Gap BUN Creatinine Est GFR ( Amer) Est GFR (Non-Af Amer) POC Glucose (mg/dL) Random Glucose Calcium Total Bilirubin AST ALT Alkaline Phosphatase Troponin I Total Protein Albumin Globulin Albumin/Globulin Ratio Amylase Lipase Arterial Blood Potassium 3.8 Urine Color Yellow Urine Clarity Clear Urine pH 6.0 Ur Specific Sp[place] 1.029 Urine Protein 100 Urine Glucose (UA) >=500 Urine Ketones 80 Urine Blood Small Urine Nitrate Negative Urine Bilirubin Negative Urine Urobilinogen 0.2-1.0 Ur Leukocyte Esterase Neg Urine RBC (Auto) 3 Urine Microscopic WBC 1 Ur Squamous Epith Cells 1 Urine Opiates Screen Negative Urine Methadone Screen Negative Ur Barbiturates Screen Negative Ur Phencyclidine Scrn Negative Ur Amphetamines Screen Negative U Benzodiazepines Scrn Negative U Oth Cocaine Metabols Negative U Cannabinoids Screen Positive H Assessment & Plan - Assessment and Plan (Free Text) Assessment: A/P: 47 y/o male with PMH of HIV on HAART therapy, recently diagnosed DM-II, Transaminasemia in last admission admitted for evaluation and treatment of intractable nausea and vomiting. Intractable nausea and vomiting with dark stool, unknown etiology - NBNB vomiting, FOBT +, recently diagnosed DM, Utox positive for Marijuana - Consult GI, Dr. 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/18: Hepatic Steatosis Asympotmatic HIV - Chronic - On HAART - Hold HAART meds due to elevated transaminases and NPO status DVT PPX - SCD - Lovenox 40mg SC daily Code Status: Full <Ivey,Isiah D - Last Filed: 05/01/18 16:21> Results - Vital Signs Recent Vital Signs: Last Vital Signs Temp 98.6 F 05/01/18 15:59 Pulse 76 05/01/18 15:59 Resp 18 05/01/18 15:59 BP 154/91 H 05/01/18 15:59 Pulse Ox 99 05/01/18 15:59 - Labs Result Diagrams: 05/01/18 10:10 05/01/18 10:10 Labs: Laboratory Results - last 24 hr 05/01/18 05/01/18 05/01/18 10:10 10:10 10:11 WBC 8.4 RBC 5.23 Hgb 15.0 Hct 45.0 MCV 86.0 MCH 28.7 MCHC 33.3 RDW 13.5 Plt Count 166 MPV 10.7 Neut % (Auto) 78.7 H Lymph % (Auto) 15.8 L [place] % (Auto) 4.9 Eos % (Auto) 0.1 Baso % (Auto) 0.5 Neut # (Auto) 6.6 Lymph # (Auto) 1.3 [place] # (Auto) 0.4 Eos # (Auto) 0.0 Baso # (Auto) 0.0 pCO2 pO2 HCO3 ABG pH ABG Total CO2 ABG O2 Saturation ABG Base Excess Munir Test ABG Potassium A-a O2 Difference Glucose Lactate FiO2 Sodium 137 Potassium 4.2 Chloride 103 Carbon Dioxide 17 L Anion Gap 21 H BUN 11 Creatinine 0.6 L Est GFR ( Amer) > 60 Est GFR (Non-Af Amer) > 60 POC Glucose (mg/dL) 258 H Random Glucose 287 H Calcium 9.4 Total Bilirubin 1.1 AST 133 H ALT 207 H Alkaline Phosphatase 116 Troponin I < 0.0120 Total Protein 8.9 H Albumin 4.5 Globulin 4.5 H Albumin/Globulin Ratio 1.0 Amylase 95 Lipase 105 Arterial Blood Potassium Urine Color Urine Clarity Urine pH Ur Specific Sp[place] Urine Protein Urine Glucose (UA) Urine Ketones Urine Blood Urine Nitrate Urine Bilirubin Urine Urobilinogen Ur Leukocyte Esterase Urine RBC (Auto) Urine Microscopic WBC Ur Squamous Epith Cells Stool Occult Blood Urine Opiates Screen Urine Methadone Screen Ur Barbiturates Screen Ur Phencyclidine Scrn Ur Amphetamines Screen U Benzodiazepines Scrn U Oth Cocaine Metabols U Cannabinoids Screen 05/01/18 05/01/18 05/01/18 10:27 10:27 11:30 WBC RBC Hgb Hct MCV MCH MCHC RDW Plt Count MPV Neut % (Auto) Lymph % (Auto) [place] % (Auto) Eos % (Auto) Baso % (Auto) Neut # (Auto) Lymph # (Auto) [place] # (Auto) Eos # (Auto) Baso # (Auto) pCO2 34 L pO2 87 HCO3 21.6 ABG pH 7.38 ABG Total CO2 21.1 L ABG O2 Saturation 99.3 H ABG Base Excess -4.2 L Munir Test Yes ABG Potassium 3.8 A-a O2 Difference 20.0 Glucose 253 H Lactate 1.1 FiO2 21.0 Sodium 133.0 Potassium Chloride 100.0 Carbon Dioxide Anion Gap BUN Creatinine Est GFR ( Amer) Est GFR (Non-Af Amer) POC Glucose (mg/dL) Random Glucose Calcium Total Bilirubin AST ALT Alkaline Phosphatase Troponin I Total Protein Albumin Globulin Albumin/Globulin Ratio Amylase Lipase Arterial Blood Potassium 3.8 Urine Color Yellow Urine Clarity Clear Urine pH 6.0 Ur Specific [place] 1.029 Urine Protein 100 Urine Glucose (UA) >=500 Urine Ketones 80 Urine Blood Small Urine Nitrate Negative Urine Bilirubin Negative Urine Urobilinogen 0.2-1.0 Ur Leukocyte Esterase Neg Urine RBC (Auto) 3 Urine Microscopic WBC 1 Ur Squamous Epith Cells 1 Stool Occult Blood Urine Opiates Screen Negative Urine Methadone Screen Negative Ur Barbiturates Screen Negative Ur Phencyclidine Scrn Negative Ur Amphetamines Screen Negative U Benzodiazepines Scrn Negative U Oth Cocaine Metabols Negative U Cannabinoids Screen Positive H 05/01/18 05/01/18 13:47 15:49 WBC RBC Hgb Hct MCV MCH MCHC RDW Plt Count MPV Neut % (Auto) Lymph % (Auto) [place] % (Auto) Eos % (Auto) Baso % (Auto) Neut # (Auto) Lymph # (Auto) [place] # (Auto) Eos # (Auto) Baso # (Auto) pCO2 pO2 HCO3 ABG pH ABG Total CO2 ABG O2 Saturation ABG Base Excess Munir Test ABG Potassium A-a O2 Difference Glucose Lactate FiO2 Sodium Potassium Chloride Carbon Dioxide Anion Gap BUN Creatinine Est GFR ( Amer) Est GFR (Non-Af Amer) POC Glucose (mg/dL) 202 H Random Glucose Calcium Total Bilirubin AST ALT Alkaline Phosphatase Troponin I Total Protein Albumin Globulin Albumin/Globulin Ratio Amylase Lipase Arterial Blood Potassium Urine Color Urine Clarity Urine pH Ur Specific [place] Urine Protein Urine Glucose (UA) Urine Ketones Urine Blood Urine Nitrate Urine Bilirubin Urine Urobilinogen Ur Leukocyte Esterase Urine RBC (Auto) Urine Microscopic WBC Ur Squamous Epith Cells Stool Occult Blood Negative Urine Opiates Screen Urine Methadone Screen Ur Barbiturates Screen Ur Phencyclidine Scrn Ur Amphetamines Screen U Benzodiazepines Scrn U Oth Cocaine Metabols U Cannabinoids Screen Attending/Attestation - Attestation I have personally seen and examined this patient.: Yes I have fully participated in the care of the patient.: Yes I have reviewed all pertinent clinical information: Yes
[2018-05-01] MEDS ORDERED: Dextrose 50% SYRINGE Inj (50 ml) IVP PRN (13:45)
[2018-05-01] MEDS ORDERED: Dextrose 50% SYRINGE Inj (50 ml) IV PRN ×2 (13:45→13:55)
[2018-05-01] MEDS ORDERED: Glucagon Recombinant 1 mg Inj IM PRN ×2 (13:45→13:55)
[2018-05-01] MEDS: Dextrose 5%/0.45% NS 1,000 ML IV SCH ×3 (16:02→22:35)
[2018-05-01] MEDS: Insulin Regular 100 units/ml SC SCH ×2 (18:03→22:32)
[2018-05-01] MEDS ORDERED: Insulin Detemir 100 Units/ml Inj SC SCH ×2 (22:00→23:02)
[2018-05-01] MEDS ORDERED: Insulin Regular 100 units/ml SC STA (22:26)
[2018-05-01] MEDS: Sodium Chloride 0.9% 1,000 ML IV SCH (23:09)
--- NOTE | 2018-05-02 00:12 | CP.PCM.CON ---
History of Present Illness - History of Present Illness History of Present Illness: 47 yo male with recently diagnosed Diabetes Mellitus returning with nausea, and abdominal pain last night after eating salad and chicken . Used Levemir at home. Was vomiting the entire night but since this morning has been feeling better. Review of Systems - Constitutional Constitutional: absent: Chills - EENT Eyes: absent: Blind Spots Nose/Mouth/Throat: absent: Epistaxis - Cardiovascular Cardiovascular: absent: Chest Pain - Respiratory Respiratory: absent: Cough - Gastrointestinal Gastrointestinal: As Per HPI - Genitourinary Genitourinary: absent: Change in Urinary Stream Past Patient History - Past Medical History & Family History Past Medical History?: Yes - Past Social History Smoking Status: Light Smoker < 10 Cigarettes Daily - CARDIAC Hx Hypertension: No - PULMONARY Hx Respiratory Disorders: No - NEUROLOGICAL Hx Seizures: No - HEENT Hx HEENT Problems: No - RENAL Hx Chronic Kidney Disease: No - ENDOCRINE/METABOLIC Hx Diabetes Mellitus Type 2: Yes - HEMATOLOGICAL/ONCOLOGICAL Hx Human Immunodeficiency Virus (HIV): Yes - INTEGUMENTARY Hx Dermatological Problems: No - MUSCULOSKELETAL/RHEUMATOLOGICAL Hx Musculoskeletal Disorders: No Hx Falls: No - GASTROINTESTINAL Hx Gastrointestinal Disorders: No - GENITOURINARY/GYNECOLOGICAL Hx Sexually Transmitted Disorders: No - PSYCHIATRIC Hx Psychophysiologic Disorder: No Hx Substance Use: No - SURGICAL HISTORY Hx Appendectomy: Yes - ANESTHESIA Hx Anesthesia: Yes Hx Anesthesia Reactions: No Meds Allergies/Adverse Reactions: Allergies Allergy/AdvReac Type Severity Reaction Status Date / Time No Known Allergies Allergy Verified 05/01/18 08:59 - Medications Medications: Current Medications Dextrose (Dextrose 50% Inj) 0 ml IV STAT PRN; Protocol PRN Reason: Hypoglycemia Protocol Dextrose (Dextrose 50% Inj) 50 ml IVP ONCE PRN PRN Reason: Hypoglycemia Dextrose (Glutose 15) 0 gm PO ONCE PRN; Protocol PRN Reason: Hypoglycemia Protocol Enoxaparin Sodium (Lovenox) 40 mg SC DAILY MEDHAT; Protocol Famotidine (Pepcid) 20 mg IVP DAILY MEDHAT Glucagon (Glucagen Diagnostic Kit) 0 mg IM STAT PRN; Protocol PRN Reason: Hypoglycemia Protocol Sodium Chloride (Sodium Chloride 0.9%) 1,000 mls @ 125 mls/hr IV .Q8H MEDHAT Stop: 05/02/18 22:42 Last Admin: 05/01/18 23:09 Dose: 125 mls/hr Insulin Detemir (Levemir) 12 units SC [facility] Last Admin: 05/01/18 23:10 Dose: 12 unit Insulin Human Regular (Humulin R) 0 units SC [facility]; Protocol Last Admin: 05/01/18 22:32 Dose: 4 units Metoclopramide HCl (Reglan) 10 mg IVP Q6 PRN PRN Reason: Nausea/Vomiting Last Admin: 05/01/18 15:05 Dose: 10 mg Ondansetron HCl (Zofran Inj) 4 mg IVP Q6 PRN PRN Reason: Nausea/Vomiting Last Admin: 05/01/18 23:13 Dose: 4 mg Physical Exam - Constitutional Appears: No Acute Distress - Head Exam Head Exam: ATRAUMATIC - Eye Exam Eye Exam: Normal appearance Pupil Exam: PERRL - ENT Exam ENT Exam: Mucous Membranes Moist - Neck Exam Neck exam: Positive for: Normal Inspection - Respiratory Exam Respiratory Exam: NORMAL BREATHING PATTERN - Cardiovascular Exam Cardiovascular Exam: REGULAR RHYTHM, +S1, +S2 - GI/Abdominal Exam GI & Abdominal Exam: Normal Bowel Sounds, Soft. absent: Tenderness - Extremities Exam Extremities exam: Positive for: normal inspection Results - Vital Signs Recent Vital Signs: Last Vital Signs Temp 98.1 F 05/01/18 23:46 Pulse 75 05/01/18 23:46 Resp 20 05/01/18 23:46 BP 146/88 05/01/18 23:46 Pulse Ox 97 05/01/18 23:46 - Labs Result Diagrams: 05/01/18 10:10 05/01/18 10:10 Labs: Laboratory Results - last 24 hr 05/01/18 05/01/18 05/01/18 10:10 10:10 10:11 WBC 8.4 RBC 5.23 Hgb 15.0 Hct 45.0 MCV 86.0 MCH 28.7 MCHC 33.3 RDW 13.5 Plt Count 166 MPV 10.7 Neut % (Auto) 78.7 H Lymph % (Auto) 15.8 L [place] % (Auto) 4.9 Eos % (Auto) 0.1 Baso % (Auto) 0.5 Neut # (Auto) 6.6 Lymph # (Auto) 1.3 [place] # (Auto) 0.4 Eos # (Auto) 0.0 Baso # (Auto) 0.0 pCO2 pO2 HCO3 ABG pH ABG Total CO2 ABG O2 Saturation ABG Base Excess Munir Test ABG Potassium A-a O2 Difference Glucose Lactate FiO2 Sodium 137 Potassium 4.2 Chloride 103 Carbon Dioxide 17 L Anion Gap 21 H BUN 11 Creatinine 0.6 L Est GFR ( Amer) > 60 Est GFR (Non-Af Amer) > 60 POC Glucose (mg/dL) 258 H Random Glucose 287 H Calcium 9.4 Total Bilirubin 1.1 AST 133 H ALT 207 H Alkaline Phosphatase 116 Troponin I < 0.0120 Total Protein 8.9 H Albumin 4.5 Globulin 4.5 H Albumin/Globulin Ratio 1.0 Amylase 95 Lipase 105 Arterial Blood Potassium Urine Color Urine Clarity Urine pH Ur Specific [place] Urine Protein Urine Glucose (UA) Urine Ketones Urine Blood Urine Nitrate Urine Bilirubin Urine Urobilinogen Ur Leukocyte Esterase Urine RBC (Auto) Urine Microscopic WBC Ur Squamous Epith Cells Stool Occult Blood Urine Opiates Screen Urine Methadone Screen Ur Barbiturates Screen Ur Phencyclidine Scrn Ur Amphetamines Screen U Benzodiazepines Scrn U Oth Cocaine Metabols U Cannabinoids Screen 05/01/18 05/01/18 05/01/18 10:27 10:27 11:30 WBC RBC Hgb Hct MCV MCH MCHC RDW Plt Count MPV Neut % (Auto) Lymph % (Auto) [place] % (Auto) Eos % (Auto) Baso % (Auto) Neut # (Auto) Lymph # (Auto) [place] # (Auto) Eos # (Auto) Baso # (Auto) pCO2 34 L pO2 87 HCO3 21.6 ABG pH 7.38 ABG Total CO2 21.1 L ABG O2 Saturation 99.3 H ABG Base Excess -4.2 L Munir Test Yes ABG Potassium 3.8 A-a O2 Difference 20.0 Glucose 253 H Lactate 1.1 FiO2 21.0 Sodium 133.0 Potassium Chloride 100.0 Carbon Dioxide Anion Gap BUN Creatinine Est GFR ( Amer) Est GFR (Non-Af Amer) POC Glucose (mg/dL) Random Glucose Calcium Total Bilirubin AST ALT Alkaline Phosphatase Troponin I Total Protein Albumin Globulin Albumin/Globulin Ratio Amylase Lipase Arterial Blood Potassium 3.8 Urine Color Yellow Urine Clarity Clear Urine pH 6.0 Ur Specific [place] 1.029 Urine Protein 100 Urine Glucose (UA) >=500 Urine Ketones 80 Urine Blood Small Urine Nitrate Negative Urine Bilirubin Negative Urine Urobilinogen 0.2-1.0 Ur Leukocyte Esterase Neg Urine RBC (Auto) 3 Urine Microscopic WBC 1 Ur Squamous Epith Cells 1 Stool Occult Blood Urine Opiates Screen Negative Urine Methadone Screen Negative Ur Barbiturates Screen Negative Ur Phencyclidine Scrn Negative Ur Amphetamines Screen Negative U Benzodiazepines Scrn Negative U Oth Cocaine Metabols Negative U Cannabinoids Screen Positive H 05/01/18 05/01/18 05/01/18 13:47 15:49 21:46 WBC RBC Hgb Hct MCV MCH MCHC RDW Plt Count MPV Neut % (Auto) Lymph % (Auto) [place] % (Auto) Eos % (Auto) Baso % (Auto) Neut # (Auto) Lymph # (Auto) [place] # (Auto) Eos # (Auto) Baso # (Auto) pCO2 pO2 HCO3 ABG pH ABG Total CO2 ABG O2 Saturation ABG Base Excess Munir Test ABG Potassium A-a O2 Difference Glucose Lactate FiO2 Sodium Potassium Chloride Carbon Dioxide Anion Gap BUN Creatinine Est GFR ( Amer) Est GFR (Non-Af Amer) POC Glucose (mg/dL) 202 H 463 H* Random Glucose Calcium Total Bilirubin AST ALT Alkaline Phosphatase Troponin I Total Protein Albumin Globulin Albumin/Globulin Ratio Amylase Lipase Arterial Blood Potassium Urine Color Urine Clarity Urine pH Ur Specific [place] Urine Protein Urine Glucose (UA) Urine Ketones Urine Blood Urine Nitrate Urine Bilirubin Urine Urobilinogen Ur Leukocyte Esterase Urine RBC (Auto) Urine Microscopic WBC Ur Squamous Epith Cells Stool Occult Blood Negative Urine Opiates Screen Urine Methadone Screen Ur Barbiturates Screen Ur Phencyclidine Scrn Ur Amphetamines Screen U Benzodiazepines Scrn U Oth Cocaine Metabols U Cannabinoids Screen Assessment & Plan (1) Intractable vomiting with nausea Assessment and Plan: Likely diabetic gastroparesis. Should improve with good glucose control. Will advance diet. Status: Acute (2) Elevated transaminase level Assessment and Plan: Previous sono c/w fattly liver likely from DM 2. Will get hepatitis profile. Should improve over time with treatment of Diabetes. Status: Acute
[2018-05-02] MEDS ORDERED: Insulin Regular 100 units/ml SC ONE (02:52)
[2018-05-02] MEDS: Sodium Chloride 0.9% 1,000 ML IV SCH ×2 (07:00→16:21)
[2018-05-02 07:54] LABS: ALBUMIN 3.5 g/dL (3.5-5.0); ALT/SGPT 142 U/L (21-72); AST/SGOT 72 U/L (17-59); BLOOD UREA NITROGEN 12 mg/dl (9-20); CALCIUM 8.7 mg/dL (8.4-10.2); GFR NON-AFRICAN AMERICAN > 60
[2018-05-02 08:08] LABS: HEMOGLOBIN 13.5 g/dL (12.0-18.0); MEAN CELL VOLUME 85.2 fl (80.0-94.0); MEAN CORPUSCULAR HEMOGLOBIN 28.6 pg (27.0-31.0); MEAN CORPUSCULAR HGB CONC 33.5 g/dL (33.0-37.0); RBC 4.74 Mil/uL (4.40-5.90); RED CELL DISTRIBUTION WIDTH 13.7 % (11.5-14.5); WHITE BLOOD COUNT 7.6 K/uL (4.8-10.8)
[2018-05-02] MEDS: Insulin Regular 100 units/ml SC SCH ×4 (08:37→22:24)
[2018-05-02] MEDS ORDERED: Enoxaparin 40 mg Syringe SC SCH (09:00)
[2018-05-02] MEDS ORDERED: Pantoprazole 40 mg EC Tab PO SCH (09:00)
--- NOTE | 2018-05-02 10:28 | CP.PCM.PN ---
<Clara Phoenix - Last Filed: 05/02/18 18:44> Subjective - Date & Time of Evaluation Date of Evaluation: 05/02/18 Time of Evaluation: 09:46 - Subjective Subjective: Patient was seen and examined this AM. Patient was complained of abdominal pain and 1 episode of nonbloody vomit. He denied any fever, chills, chest pain, short ness of breath. Objective - Vital Signs/Intake and Output Vital Signs (last 24 hours): Temp Pulse Resp BP Pulse Ox 98.0 F 70 19 158/93 H 97 05/02/18 08:06 05/02/18 08:06 05/02/18 08:06 05/02/18 08:06 05/02/18 08:06 - Medications Medications: Current Medications Dextrose (Dextrose 50% Inj) 0 ml IV STAT PRN; Protocol PRN Reason: Hypoglycemia Protocol Dextrose (Dextrose 50% Inj) 50 ml IVP ONCE PRN PRN Reason: Hypoglycemia Dextrose (Glutose 15) 0 gm PO ONCE PRN; Protocol PRN Reason: Hypoglycemia Protocol Emtricitabine/Tenofovir (Truvada 200 Mg-300 Mg) 1 tab PO DAILY [facility]; Protocol Enoxaparin Sodium (Lovenox) 40 mg SC DAILY [facility]; Protocol Last Admin: 05/02/18 08:38 Dose: 40 mg Glucagon (Glucagen Diagnostic Kit) 0 mg IM STAT PRN; Protocol PRN Reason: Hypoglycemia Protocol Sodium Chloride (Sodium Chloride 0.9%) 1,000 mls @ 125 mls/hr IV .Q8H [facility] Stop: 05/02/18 22:42 Last Admin: 05/02/18 07:00 Dose: Not Given Insulin Detemir (Levemir) 12 units SC [facility] Last Admin: 05/01/18 23:10 Dose: 12 unit Insulin Human Regular (Humulin R) [address] [facility]; Protocol Last Admin: 05/02/18 08:37 Dose: 3 units Metoclopramide HCl (Reglan) 10 mg IVP Q6 PRN PRN Reason: Nausea/Vomiting Last Admin: 05/02/18 04:22 Dose: 10 mg Ondansetron HCl (Zofran Inj) 4 mg IVP Q6 PRN PRN Reason: Nausea/Vomiting Last Admin: 05/02/18 08:37 Dose: 4 mg Pantoprazole Sodium (Protonix Ec Tab) 40 mg PO DAILY [facility] Last Admin: 05/02/18 08:38 Dose: 40 mg Pantoprazole Sodium (Protonix Inj) 40 mg IVP ONCE ONE Stop: 05/02/18 10:21 Raltegravir (Isentress) 400 mg PO Q12 [facility]; Protocol - Labs Labs: 05/02/18 06:00 05/02/18 05:20 Assessment and Plan - Assessment and Plan (Free Text) Assessment: 47 y/o m with medhx of HIV (on HAART) was admitted for intractable nausea & vomitting. 1. Intractable nausea, vomitting, and abdominal pain (Acute) -Attempt was made to advance patient's diet, but he had an episode of nonbloody emesis. -NPO -Continue metoclopromide & zofran prn -Dr. Quarles's recommendations were appreciated. EGD will be done tomorrow. FU results. -Continue to monitor. 2. DMII (Acute) - [id number] unit HS -Will not restart metformin or januvia because of transaminitis. -Continue hypoglycemia protocol 3. HIV (Chronic, controlled) -Continue Truvada 1 tab QD -Continue Raltegravir 400mb BID 4. Transaminitis (Aute) -FU hepatitis panel. -Abd U/s performed on 04/29/2018 showed hepatic steatosis. -Continue to monitor. <Isiah Ivey D - Last Filed: 05/02/18 19:03> Objective - Vital Signs/Intake and Output Vital Signs (last 24 hours): Temp Pulse Resp BP Pulse Ox 98.6 F 69 18 159/96 H 96 05/02/18 16:20 05/02/18 16:20 05/02/18 16:20 05/02/18 16:20 05/02/18 16:20 - Medications Medications: Current Medications Dextrose (Dextrose 50% Inj) 0 ml IV STAT PRN; Protocol PRN Reason: Hypoglycemia Protocol Dextrose (Dextrose 50% Inj) 50 ml IVP ONCE PRN PRN Reason: Hypoglycemia Dextrose (Glutose 15) 0 gm PO ONCE PRN; Protocol PRN Reason: Hypoglycemia Protocol Emtricitabine/Tenofovir (Truvada 200 Mg-300 Mg) 1 tab PO DAILY [facility]; Protocol Last Admin: 05/02/18 16:20 Dose: Not Given Enoxaparin Sodium (Lovenox) 40 mg SC DAILY [facility]; Protocol Last Admin: 05/02/18 08:38 Dose: 40 mg Glucagon (Glucagen Diagnostic Kit) 0 mg IM STAT PRN; Protocol PRN Reason: Hypoglycemia Protocol Sodium Chloride (Sodium Chloride 0.9%) 1,000 mls @ 125 mls/hr IV .Q8H [facility] Stop: 05/02/18 22:42 Last Admin: 05/02/18 16:21 Dose: 125 mls/hr Insulin Detemir (Levemir) 12 units SC [facility] Insulin Human Regular (Humulin R) 0 units SC A[facility]; Protocol Last Admin: 05/02/18 16:23 Dose: 2 units Metoclopramide HCl (Reglan) 10 mg IVP Q6 PRN PRN Reason: Nausea/Vomiting Last Admin: 05/02/18 18:36 Dose: 10 mg Morphine Sulfate (Morphine) 2 mg IVP Q4 PRN PRN Reason: Pain, moderate (4-7) Last Admin: 05/02/18 18:36 Dose: 2 mg Morphine Sulfate (Morphine) 4 mg IVP Q4 PRN PRN Reason: Pain, severe (8-10) Ondansetron HCl (Zofran Inj) 4 mg IVP Q6 PRN PRN Reason: Nausea/Vomiting Last Admin: 05/02/18 14:42 Dose: 4 mg Pantoprazole Sodium (Protonix Ec Tab) 40 mg PO DAILY [facility] Last Admin: 05/02/18 08:38 Dose: 40 mg Raltegravir (Isentress) 400 mg PO Q12 [facility]; Protocol Last Admin: 05/02/18 16:19 Dose: Not Given - Labs Labs: 05/02/18 06:00 05/02/18 05:20 Attending/Attestation - Attestation I have personally seen and examined this patient.: Yes I have fully participated in the care of the patient.: Yes I have reviewed all pertinent clinical information, including history, physical exam and plan: Yes
--- NOTE | 2018-05-02 10:41 | CP.PCM.PN ---
Subjective - Date & Time of Evaluation Date of Evaluation: 05/02/18 Time of Evaluation: 10:39 - Subjective Subjective: GI progress note for Dr. Renard Mike, PGY-2 Pt S & E at bedside at 1020 Pt reports abdominal pain and nausea were better yesterday, however last night they worsened. Has been having epigastric abdominal plain, nausea, emesis (small quantity, clear-yellow fluid), unable to eat due to pain. Denies F & C, CP, SOB. Reports he was diagnosed with DM on Thursday, sent to hospital for hyperglycemia, discharged Thursday and was ok until Thursday PM after eating salad and checking sugars when he started to experience nausea and abdominal pain. Objective - Vital Signs/Intake and Output Vital Signs (last 24 hours): Temp Pulse Resp BP Pulse Ox 98.0 F 70 19 158/93 H 97 05/02/18 08:06 05/02/18 08:06 05/02/18 08:06 05/02/18 08:06 05/02/18 08:06 - Medications Medications: Current Medications Dextrose (Dextrose 50% Inj) 0 ml IV STAT PRN; Protocol PRN Reason: Hypoglycemia Protocol Dextrose (Dextrose 50% Inj) 50 ml IVP ONCE PRN PRN Reason: Hypoglycemia Dextrose (Glutose 15) 0 gm PO ONCE PRN; Protocol PRN Reason: Hypoglycemia Protocol Emtricitabine/Tenofovir (Truvada 200 Mg-300 Mg) 1 tab PO DAILY [facility]; Protocol Enoxaparin Sodium (Lovenox) 40 mg SC DAILY [facility]; Protocol Last Admin: 05/02/18 08:38 Dose: 40 mg Glucagon (Glucagen Diagnostic Kit) 0 mg IM STAT PRN; Protocol PRN Reason: Hypoglycemia Protocol Sodium Chloride (Sodium Chloride 0.9%) 1,000 mls @ 125 mls/hr IV .Q8H [facility] Stop: 05/02/18 22:42 Last Admin: 05/02/18 07:00 Dose: Not Given Insulin Detemir (Levemir) 12 units SC HS [facility] Last Admin: 05/01/18 23:10 Dose: 12 unit Insulin Human Regular (Humulin R) 0 units SC ACHS [facility]; Protocol Last Admin: 05/02/18 08:37 Dose: 3 units Metoclopramide HCl (Reglan) 10 mg IVP Q6 PRN PRN Reason: Nausea/Vomiting Last Admin: 10/07/18 04:22 Dose: 10 mg Morphine Sulfate (Morphine) 2 mg IVP Q4 PRN PRN Reason: Pain, moderate (4-7) Morphine Sulfate (Morphine) 4 mg IVP Q4 PRN PRN Reason: Pain, severe (8-10) Ondansetron HCl (Zofran Inj) 4 mg IVP Q6 PRN PRN Reason: Nausea/Vomiting Last Admin: 05/02/18 08:37 Dose: 4 mg Pantoprazole Sodium (Protonix Ec Tab) 40 mg PO DAILY [facility] Last Admin: 05/02/18 08:38 Dose: 40 mg Pantoprazole Sodium (Protonix Inj) 40 mg IVP ONCE ONE Stop: 05/02/18 10:21 Raltegravir (Isentress) 400 mg PO Q12 [facility]; Protocol - Labs Labs: 05/02/18 06:00 05/02/18 05:20 - Constitutional Appears: Non-toxic, No Acute Distress - Head Exam Head Exam: ATRAUMATIC, NORMAL INSPECTION, NORMOCEPHALIC - Eye Exam Eye Exam: EOMI, Normal appearance - ENT Exam ENT Exam: Mucous Membranes Moist, Normal Exam - Neck Exam Neck Exam: Full ROM, Normal Inspection - Respiratory Exam Respiratory Exam: NORMAL BREATHING PATTERN - Cardiovascular Exam Cardiovascular Exam: REGULAR RHYTHM, +S1, +S2 - GI/Abdominal Exam GI & Abdominal Exam: Soft, Tenderness (Epigastric). absent: Distended, Firm, Guarding, Rebound - Extremities Exam Extremities Exam: Normal Inspection - Neurological Exam Neurological Exam: Alert, Awake, CN II-XII Intact, Oriented x3 - Psychiatric Exam Psychiatric exam: Normal Affect, Normal Mood - Skin Skin Exam: Dry, Intact, Normal Color, Warm Assessment and Plan - Assessment and Plan (Free Text) Assessment: 47M w/intractable nausea, emesis in setting of newly diagnosed DM Plan: Clear liquid diet for now Anti-emetics Plan for EGD tomorrow NPO pMN Pain control Consent in chart DW Dr. Robina Mike, PGY-2
--- NOTE | 2018-05-02 12:47 | CARD ---
APPROVED REPORT Date of service: 05/01/2018 EKG Measurement Heart [id number] <Conclusion> Normal sinus rhythm Minimal voltage criteria for LVH, may be normal variant Borderline ECG
[2018-05-02] MEDS: Emtricitabine-Tenofovir 200 mg-300 mg Tab PO SCH (16:20)
[2018-05-02 20:07] LABS: INR 1.2; PROTHROMBIN TIME 13.3 Seconds (9.8-13.1)
[2018-05-02] MEDS ORDERED: Insulin Detemir 100 Units/ml Inj SC SCH ×2 (22:00)
[2018-05-03 06:35] LABS: BASO % 0.4 % (0.0-2.0); HEMOGLOBIN 14.8 g/dL (12.0-18.0); LYMPH # 2.2 K/uL (1.0-4.3); MEAN CELL VOLUME 84.4 fl (80.0-94.0); MEAN CORPUSCULAR HEMOGLOBIN 28.7 pg (27.0-31.0); MEAN PLATELET VOLUME 10.2 fl (7.2-11.7); MONO # 0.9 K/uL (0.0-0.8); MONO % 8.7 % (0.0-10.0); NEUT % 68.9 % (50.0-75.0); RBC 5.15 Mil/uL (4.40-5.90); RED CELL DISTRIBUTION WIDTH 13.9 % (11.5-14.5); WHITE BLOOD COUNT 10.2 K/uL (4.8-10.8)
[2018-05-03 06:58] LABS: ALBUMIN 4.1 g/dL (3.5-5.0); ALT/SGPT 193 U/L (21-72); AST/SGOT 127 U/L (17-59); BLOOD UREA NITROGEN 12 mg/dl (9-20); GFR NON-AFRICAN AMERICAN > 60
[2018-05-03 08:19] LABS: HEPATITIS B SURFACE AG Negative (NEGATIVE)
[2018-05-03] MEDS: Insulin Regular 100 units/ml SC SCH (08:20)
[2018-05-03] MEDS: Emtricitabine-Tenofovir 200 mg-300 mg Tab PO SCH (08:21)
[2018-05-03 08:25] LABS: HEPATITIS A IGM NEGATIVE (NEGATIVE); HEPATITIS B CORE AB NEGATIVE (NEGATIVE)
[2018-05-03 08:36] LABS: HEPATITIS C ANTIBODY NEGATIVE (NEGATIVE)
[2018-05-03] MEDS ORDERED: Lactated Ringer's 500 ML IV ONE (11:36)
[2018-05-03] MEDS ORDERED: Propofol 10 mg/ml Inj (20 ML) ONE (12:21)
[2018-05-03 12:37] VITALS: TEMP 97.5
[2018-05-03 12:49] VITALS: BP 131/82; PULSE 60; RESP 15; O2SAT 100
--- NOTE | 2018-05-03 14:26 | CP.PCM.DIS ---
<Clara Phoenix - Last Filed: 05/03/18 16:46> Provider - Provider Date of Admission: 05/01/18 13:25 Attending physician: Isiah Ivey MD Time Spent in preparation of Discharge (in minutes): 30 Hospital Course - Lab Results Lab Results: Micro Results 05/01/18 10:27 Urine Urine Culture - Final No Growth (<1,000 CFU/ML) 05/01/18 14:57 Blood Blood Culture - Preliminary NO GROWTH AFTER 24 HOURS 05/01/18 14:47 Blood Blood Culture - Preliminary NO GROWTH AFTER 24 HOURS Most Recent Lab Values WBC 10.2 K/uL (4.8-10.8) 05/03/18 05:55 RBC 5.15 Mil/uL (4.40-5.90) 05/03/18 05:55 Hgb 14.8 g/dL (12.0-18.0) 05/03/18 05:55 Hct 43.5 % (35.0-51.0) 05/03/18 05:55 MCV 84.4 fl (80.0-94.0) 05/03/18 05:55 MCH 28.7 pg (27.0-31.0) 05/03/18 05:55 MCHC 34.0 g/dL (33.0-37.0) 05/03/18 05:55 RDW 13.9 % (11.5-14.5) 05/03/18 05:55 Plt Count 191 K/uL (130-400) 05/03/18 05:55 MPV 10.2 fl (7.2-11.7) 05/03/18 05:55 Neut % (Auto) 68.9 % (50.0-75.0) 05/03/18 05:55 Lymph % (Auto) 22.0 % (20.0-40.0) 05/03/18 05:55 [place] % (Auto) 8.7 % (0.0-10.0) 05/03/18 05:55 Eos % (Auto) 0.0 % (0.0-4.0) 05/03/18 05:55 Baso % (Auto) 0.4 % (0.0-2.0) 05/03/18 05:55 Neut # (Auto) 7.0 K/uL (1.8-7.0) 05/03/18 05:55 Lymph # (Auto) 2.2 K/uL (1.0-4.3) 05/03/18 05:55 [place] # (Auto) 0.9 K/uL (0.0-0.8) H 05/03/18 05:55 Eos # (Auto) 0.0 K/uL (0.0-0.7) 05/03/18 05:55 Baso # (Auto) 0.0 K/uL (0.0-0.2) 05/03/18 05:55 PT 13.3 Seconds (9.8-13.1) H 05/02/18 19:18 INR 1.2 05/02/18 19:18 APTT 29.5 Seconds (25.6-37.1) 05/03/18 08:28 pCO2 34 mm/Hg (35-45) L 05/01/18 11:30 pO2 87 mm/Hg (80-100) 05/01/18 11:30 HCO3 21.6 mmol/L (21-28) 05/01/18 11:30 ABG pH 7.38 (7.35-7.45) 05/01/18 11:30 ABG Total CO2 21.1 mmol/L (22-28) L 05/01/18 11:30 ABG O2 Saturation 99.3 % (95-98) H 05/01/18 11:30 ABG Base Excess -4.2 mmol/L (-2.0-3.0) L 05/01/18 11:30 Munir Test Yes 05/01/18 11:30 ABG Potassium 3.8 mmol/L (3.6-5.2) 05/01/18 11:30 A-a O2 Difference 20.0 mm/Hg 05/01/18 11:30 Sodium 133.0 mmol/L (132-148) 05/01/18 11:30 Chloride 100.0 mmol/L (98-107) 05/01/18 11:30 Glucose 253 mg/dL (75-110) H 05/01/18 11:30 Lactate 1.1 mmol/L (0.7-2.1) 05/01/18 11:30 FiO2 21.0 % 05/01/18 11:30 Sodium 137 mmol/l (132-148) 05/03/18 05:55 Potassium 3.5 MMOL/L (3.6-5.0) L 05/03/18 05:55 Chloride 97 mmol/L (98-107) L 05/03/18 05:55 Carbon Dioxide 28 mmol/L (22-30) 05/03/18 05:55 Anion Gap 16 (10-20) 05/03/18 05:55 BUN 12 mg/dl (9-20) 05/03/18 05:55 Creatinine 0.6 mg/dl (0.8-1.5) L 05/03/18 05:55 Est GFR ( Amer) > 60 05/03/18 05:55 Est GFR (Non-Af Amer) > 60 05/03/18 05:55 POC Glucose (mg/dL) 145 mg/dL (65-110) H 05/03/18 10:45 Random Glucose 167 mg/dL (75-110) H 05/03/18 05:55 Calcium 9.0 mg/dL (8.4-10.2) 05/03/18 05:55 Total Bilirubin 0.9 mg/dl (0.2-1.3) 05/03/18 05:55 AST 127 U/L (17-59) H D 05/03/18 05:55 ALT 193 U/L (21-72) H D 05/03/18 05:55 Alkaline Phosphatase 84 U/L (38-126) 05/03/18 05:55 Troponin I < 0.0120 ng/mL (0.00-0.120) 05/01/18 10:10 Total Protein 8.2 G/DL (6.3-8.2) 05/03/18 05:55 Albumin 4.1 g/dL (3.5-5.0) 05/03/18 05:55 Globulin 4.1 gm/dL (2.2-3.9) H 05/03/18 05:55 Albumin/Globulin Ratio 1.0 (1.0-2.1) 05/03/18 05:55 Amylase 95 U/L (30-110) 05/01/18 10:10 Lipase 105 U/L (23-300) 05/01/18 10:10 Arterial Blood Potassium 3.8 mmol/L (3.6-5.2) 05/01/18 11:30 Urine Color Yellow (YELLOW) 05/01/18 10:27 Urine Clarity Clear (Clear) 05/01/18 10:27 Urine pH 6.0 (5.0-8.0) 05/01/18 10:27 Ur Specific [place] 1.029 (1.003-1.030) 05/01/18 10:27 Urine Protein 100 mg/dL (NEGATIVE) 05/01/18 10:27 Urine Glucose (UA) >=500 mg/dL (Normal) 05/01/18 10:27 Urine Ketones 80 mg/dL (NEGATIVE) 05/01/18 10:27 Urine Blood Small (NEGATIVE) 05/01/18 10:27 Urine Nitrate Negative (NEGATIVE) 05/01/18 10:27 Urine Bilirubin Negative (NEGATIVE) 05/01/18 10:27 Urine Urobilinogen 0.2-1.0 mg/dL (0.2-1.0) 05/01/18 10:27 Ur Leukocyte Esterase Neg Kishor/uL (Negative) 05/01/18 10:27 Urine RBC (Auto) 3 /hpf (0-3) 05/01/18 10:27 Urine Microscopic WBC 1 /hpf (0-5) 05/01/18 10:27 Ur Squamous Epith Cells 1 /hpf (0-5) 05/01/18 10:27 Stool Occult Blood Negative (NEGATIVE) 05/01/18 13:47 Urine Opiates Screen Negative (NEGATIVE) 05/01/18 10:27 Urine Methadone Screen Negative (NEGATIVE) 05/01/18 10:27 Ur Barbiturates Screen Negative (NEGATIVE) 05/01/18 10:27 Ur Phencyclidine Scrn Negative (NEGATIVE) 05/01/18 10:27 Ur Amphetamines Screen Negative (NEGATIVE) 05/01/18 10:27 U Benzodiazepines Scrn Negative (NEGATIVE) 05/01/18 10:27 U Oth Cocaine Metabols Negative (NEGATIVE) 05/01/18 10:27 U Cannabinoids Screen Positive (NEGATIVE) H 05/01/18 10:27 Hepatitis A IgM Ab Negative (NEGATIVE) 05/02/18 05:20 Hep Bs Antigen Negative (NEGATIVE) 05/02/18 05:20 Hep B Core IgM Ab Negative (NEGATIVE) 05/02/18 05:20 Hepatitis C Antibody Negative (NEGATIVE) 05/02/18 05:20 - Hospital Course Hospital Course: 47 y/o m with medhx of HIV (on HAART) & newly diagnoses DMII was admitted for intractable nausea & vomitting. Lipase was 105, amylase was 95, and t ransaminases were elevated. Patient was made NPO, given zofran & metoclopromide PRN. Attempts were made to advance his diet, but he continued to have nonbloody emesis. EGD was performed today and patient was found to have gastritis, and duodenitis. Patient was discharged with protonix 40mg PO QD. 1. Nausea, vomitting, and Abdominal pain likely due to Gastritis & Duodenitis (Acute) -Protonix 4mg PO QD 2. DMII (Acute) - Levemir 12 unit HS 3. HIV (Chronic, controlled) -Continue Truvada 1 tab QD -Continue Raltegravir 400mb BID 4. Transaminitis (Aute) -Abd U/s performed on 04/29/2018 showed hepatic steatosis. Discharge Exam - Head Exam Head Exam: ATRAUMATIC, NORMAL INSPECTION, NORMOCEPHALIC - Neck Exam Neck exam: Full Rom - Respiratory Exam Respiratory Exam: Clear to PA & Lateral - Cardiovascular Exam Cardiovascular Exam: REGULAR RHYTHM, +S1, +S2 - GI/Abdominal Exam GI & Abdominal Exam: Normal Bowel Sounds, Soft, Tenderness - Neurological Exam Neurological exam: Alert, Oriented x3 - Skin Skin Exam: Dry Discharge Plan - Discharge Medications Prescriptions: Ondansetron [Zofran] 4 mg PO Q6H PRN #20 tab PRN Reason: Nausea/Vomiting Pantoprazole Sodium [Protonix] 40 mg PO DAILY #30 ect - Follow Up Plan Condition: STABLE Disposition: HOME/ ROUTINE Instructions: Acute Abdomen (Belly Pain), Adult (DC), Nausea and Vomiting, Adult (DC) Additional Instructions: follow up with dr hale 1-2 weeks Referrals: Katelin Cabrera MD [Staff Provider] - Giuliano Hale MD [Staff Provider] - <Isiah Ivey - Last Filed: 05/03/18 17:22> Provider - Provider Date of Admission: 05/01/18 13:25 Attending physician: Isiah Ivey MD Hospital Course - Lab Results Lab Results: Micro Results 05/01/18 14:47 Blood Blood Culture - Preliminary NO GROWTH AFTER 48 HOURS 05/01/18 14:57 Blood Blood Culture - Preliminary NO GROWTH AFTER 48 HOURS 05/01/18 10:27 Urine Urine Culture - Final No Growth (<1,000 CFU/ML) Most Recent Lab Values WBC 10.2 K/uL (4.8-10.8) 05/03/18 05:55 RBC 5.15 Mil/uL (4.40-5.90) 05/03/18 05:55 Hgb 14.8 g/dL (12.0-18.0) 05/03/18 05:55 Hct 43.5 % (35.0-51.0) 05/03/18 05:55 MCV 84.4 fl (80.0-94.0) 05/03/18 05:55 MCH 28.7 pg (27.0-31.0) 05/03/18 05:55 MCHC 34.0 g/dL (33.0-37.0) 05/03/18 05:55 RDW 13.9 % (11.5-14.5) 05/03/18 05:55 Plt Count 191 K/uL (130-400) 05/03/18 05:55 MPV 10.2 fl (7.2-11.7) 05/03/18 05:55 Neut % (Auto) 68.9 % (50.0-75.0) 05/03/18 05:55 Lymph % (Auto) 22.0 % (20.0-40.0) 05/03/18 05:55 [place] % (Auto) 8.7 % (0.0-10.0) 05/03/18 05:55 Eos % (Auto) 0.0 % (0.0-4.0) 05/03/18 05:55 Baso % (Auto) 0.4 % (0.0-2.0) 05/03/18 05:55 Neut # (Auto) 7.0 K/uL (1.8-7.0) 05/03/18 05:55 Lymph # (Auto) 2.2 K/uL (1.0-4.3) 05/03/18 05:55 [place] # (Auto) 0.9 K/uL (0.0-0.8) H 05/03/18 05:55 Eos # (Auto) 0.0 K/uL (0.0-0.7) 05/03/18 05:55 Baso # (Auto) 0.0 K/uL (0.0-0.2) 05/03/18 05:55 PT 13.3 Seconds (9.8-13.1) H 05/02/18 19:18 INR 1.2 05/02/18 19:18 APTT 29.5 Seconds (25.6-37.1) 05/03/18 08:28 pCO2 34 mm/Hg (35-45) L 05/01/18 11:30 pO2 87 mm/Hg (80-100) 05/01/18 11:30 HCO3 21.6 mmol/L (21-28) 05/01/18 11:30 ABG pH 7.38 (7.35-7.45) 05/01/18 11:30 ABG Total CO2 21.1 mmol/L (22-28) L 05/01/18 11:30 ABG O2 Saturation 99.3 % (95-98) H 05/01/18 11:30 ABG Base Excess -4.2 mmol/L (-2.0-3.0) L 05/01/18 11:30 Munir Test Yes 05/01/18 11:30 ABG Potassium 3.8 mmol/L (3.6-5.2) 05/01/18 11:30 A-a O2 Difference 20.0 mm/Hg 05/01/18 11:30 Sodium 133.0 mmol/L (132-148) 05/01/18 11:30 Chloride 100.0 mmol/L (98-107) 05/01/18 11:30 Glucose 253 mg/dL (75-110) H 05/01/18 11:30 Lactate 1.1 mmol/L (0.7-2.1) 05/01/18 11:30 FiO2 21.0 % 05/01/18 11:30 Sodium 137 mmol/l (132-148) 05/03/18 05:55 Potassium 3.5 MMOL/L (3.6-5.0) L 05/03/18 05:55 Chloride 97 mmol/L (98-107) L 05/03/18 05:55 Carbon Dioxide 28 mmol/L (22-30) 05/03/18 05:55 Anion Gap 16 (10-20) 05/03/18 05:55 BUN 12 mg/dl (9-20) 05/03/18 05:55 Creatinine 0.6 mg/dl (0.8-1.5) L 05/03/18 05:55 Est GFR ( Amer) > 60 05/03/18 05:55 Est GFR (Non-Af Amer) > 60 05/03/18 05:55 POC Glucose (mg/dL) 145 mg/dL (65-110) H 05/03/18 10:45 Random Glucose 167 mg/dL (75-110) H 05/03/18 05:55 Calcium 9.0 mg/dL (8.4-10.2) 05/03/18 05:55 Total Bilirubin 0.9 mg/dl (0.2-1.3) 05/03/18 05:55 AST 127 U/L (17-59) H D 05/03/18 05:55 ALT 193 U/L (21-72) H D 05/03/18 05:55 Alkaline Phosphatase 84 U/L (38-126) 05/03/18 05:55 Troponin I < 0.0120 ng/mL (0.00-0.120) 05/01/18 10:10 Total Protein 8.2 G/DL (6.3-8.2) 05/03/18 05:55 Albumin 4.1 g/dL (3.5-5.0) 05/03/18 05:55 Globulin 4.1 gm/dL (2.2-3.9) H 05/03/18 05:55 Albumin/Globulin Ratio 1.0 (1.0-2.1) 05/03/18 05:55 Amylase 95 U/L (30-110) 05/01/18 10:10 Lipase 105 U/L (23-300) 05/01/18 10:10 Arterial Blood Potassium 3.8 mmol/L (3.6-5.2) 05/01/18 11:30 Urine Color Yellow (YELLOW) 05/01/18 10:27 Urine Clarity Clear (Clear) 05/01/18 10:27 Urine pH 6.0 (5.0-8.0) 05/01/18 10:27 Ur Specific [place] 1.029 (1.003-1.030) 05/01/18 10:27 Urine Protein 100 mg/dL (NEGATIVE) 05/01/18 10:27 Urine Glucose (UA) >=500 mg/dL (Normal) 05/01/18 10:27 Urine Ketones 80 mg/dL (NEGATIVE) 05/01/18 10:27 Urine Blood Small (NEGATIVE) 05/01/18 10:27 Urine Nitrate Negative (NEGATIVE) 05/01/18 10:27 Urine Bilirubin Negative (NEGATIVE) 05/01/18 10:27 Urine Urobilinogen 0.2-1.0 mg/dL (0.2-1.0) 05/01/18 10:27 Ur Leukocyte Esterase Neg Kishor/uL (Negative) 05/01/18 10:27 Urine RBC (Auto) 3 /hpf (0-3) 05/01/18 10:27 Urine Microscopic WBC 1 /hpf (0-5) 05/01/18 10:27 Ur Squamous Epith Cells 1 /hpf (0-5) 05/01/18 10:27 Stool Occult Blood Negative (NEGATIVE) 05/01/18 13:47 Urine Opiates Screen Negative (NEGATIVE) 05/01/18 10:27 Urine Methadone Screen Negative (NEGATIVE) 05/01/18 10:27 Ur Barbiturates Screen Negative (NEGATIVE) 05/01/18 10:27 Ur Phencyclidine Scrn Negative (NEGATIVE) 05/01/18 10:27 Ur Amphetamines Screen Negative (NEGATIVE) 05/01/18 10:27 U Benzodiazepines Scrn Negative (NEGATIVE) 05/01/18 10:27 U Oth Cocaine Metabols Negative (NEGATIVE) 05/01/18 10:27 U Cannabinoids Screen Positive (NEGATIVE) H 05/01/18 10:27 Hepatitis A IgM Ab Negative (NEGATIVE) 05/02/18 05:20 Hep Bs Antigen Negative (NEGATIVE) 05/02/18 05:20 Hep B Core IgM Ab Negative (NEGATIVE) 05/02/18 05:20 Hepatitis C Antibody Negative (NEGATIVE) 05/02/18 05:20 Attending/Attestation - Attestation I have personally seen and examined this patient.: Yes I have fully participated in the care of the patient.: Yes I have reviewed all pertinent clinical information, including history, physical exam and plan: Yes
== END 2018-05-03 16:15 | disposition home or self-care (01) ==
LOC: H.ER 08:52 → H.ERHOLD 13:25 → H.MEDSURG1 14:43
DX: R11.2 Nausea with vomiting, unspecified (principal); R10.13 Epigastric pain; Z21 Asymptomatic human immunodeficiency virus [HIV] infection status; K29.70 Gastritis, unspecified, without bleeding; K29.80 Duodenitis without bleeding; E11.65 Type 2 diabetes mellitus with hyperglycemia; F17.210 Nicotine dependence, cigarettes, uncomplicated; K31.89 Other diseases of stomach and duodenum; K76.0 Fatty (change of) liver, not elsewhere classified
CPT/HCPCS: 36415; 43239; 71045; 80053; 80074; 81003; 82150; 82803; 82948; 83690; 84484; 85025; 85027; 85610; 85730; 87040; 87086; 88305; 93005; 96374; 99284; C9113; G0328; G0378; G0480; J1650; J2001; J2270; J2405; J2704; J2765; J7030; J7042; J7120